=== PATIENT | female | born 1980 | race Caucasian/White ===

== ENCOUNTER → 2016-08-26 | Outpatient (CLI) | payer OTHER ==
[~2016-08-26] MED LIST: BLAC40CA PO; CHOL100010 PO; COEN1CAP28 PO; ESTR1TAB2 PO; LAMO100T16 PO; LEVO75TA PO; LORA-741 PO; MAGN1TAB21 PO; MULT-506 PO; OXCA600T2 PO; RIZA10TA18 PO
== END | disposition home or self-care (01) ==
LOC: C.PAPS 11:38
PROVIDERS: ATTEND Obstetrics & Gynecology
DX: Z01.419 Encounter for gynecological examination (general) (routine) without abnormal findings (principal)

== ENCOUNTER → 2016-10-25 | Outpatient (CLI) | payer OTHER ==
[2016-10-28 11:40] LABS: CHLAMYDIA TRACH RNA*** NOT DETECTED (NOT DETECTED); GC (NEIS GONORRHOEAE)RNA** NOT DETECTED (NOT DETECTED)
== END | disposition home or self-care (01) ==
LOC: C.LABSPEC 16:17
PROVIDERS: ATTEND Physician Assistant
DX: Z11.3 Encounter for screening for infections with a predominantly sexual mode of transmission (principal)

== ENCOUNTER → 2016-10-25 | Outpatient (CLI) | payer OTHER | END | disposition home or self-care (01) | LOC: C.LAB1850 12:51 | PROVIDERS: ATTEND Physician Assistant | DX: Z11.3 Encounter for screening for infections with a predominantly sexual mode of transmission (principal) ==

== ENCOUNTER → 2017-04-07 | Outpatient (CLI) | payer OTHER ==
--- NOTE | 2017-04-07 15:49 | MAMMOGRAPHY REPORT ---
BILATERAL DIGITAL DIAGNOSTIC MAMMOGRAM TOMOSYNTHESIS WITH CAD AND TARGETED RIGHT ULTRASOUND: 04/07/2017 CLINICAL HISTORY: The patient notes some swelling involving her right upper breast and right axillary region, with associated pain for approximately 3 weeks. She was placed on antibiotics yesterday. TECHNIQUE: Breast tomosynthesis in addition to standard 2D mammography was performed. Current study was also evaluated with a Computer Aided Detection (CAD) system. Bilateral CC and MLO 2-D and tomosy nthesis images were obtained. COMPARISON: No prior exams were available for comparison. BREAST COMPOSITION: There are scattered areas of fibroglandular density in both breasts. FINDINGS: A triangle marker garcia the site of swelling involving the right 12:00 breast far superiorl y. There are no suspicious masses or other suspicious mammographic abnormalities in this region. Th e remainder of both breasts are negative, without suspicious masses, calcifications, or areas of arch itectural distortion noted. Targeted ultrasound was performed of the area of swelling and pain pointed out by the patient, involv ing the right 11 to 1:00 breast far superiorly, approximately 9 cm from the nipple, as well as the ri ght axilla. Sonographically normal tissue is seen in this region, without evidence of a mass or othe r suspicious sonographic abnormality. Morphologically normal right axillary lymph nodes are seen, wi thout evidence of axillary adenopathy. IMPRESSION: ACR BI-RADS CATEGORY 2: BENIGN, TARGETED ULTRASOUND ACR BI-RADS CATEGORY 2: BENIGN No suspicious mammographic or sonographic abnormality to explain right superior breast/axillary swell ing and pain. There is no mammographic or targeted sonographic evidence of malignancy. Recommend cl inical follow-up for right breast symptoms, and recommend routine bilateral screening mammograms star ting at the age of 38 unless otherwise clinically indicated. The patient has been verbally notified of the results. Approximately 10% of breast cancers are not detected with mammography. A negative mammographic report should not delay biopsy if a clinically suggestive mass is present. Cathleen Tavera M.D. ah/:04/07/2017 13:49:08 Drapery Cutter: Lisa ORTIZ)(Jones), [facility] letter sent: Normal 1/2 BI-RADS Code: ACR BI-RADS Category 2: Benign Ultrasound BI-RADS: ACR BI-RADS Category 2: Benign
== END | disposition home or self-care (01) ==
LOC: C.MAMM 12:47
PROVIDERS: ATTEND Obstetrics & Gynecology
DX: N64.4 Mastodynia (principal)

== ENCOUNTER → 2017-06-21 | Outpatient (CLI) | payer OTHER ==
[2017-06-21 14:58] LABS: BASO % 1.4 %; BASO ABS # 0.09 K/uL (0-0.2); COMPLETE YES; EOS % 2.4 %; HEMATOCRIT 39.8 % (37-47); IG% 0.2 %; LYMPH % 39.4 %; LYMPH ABS # 2.48 K/uL (1.2-3.4); MEAN CORPUSCULAR HEMOGLOBIN 29.9 pg (25-34); MEAN CORPUSCULAR HGB CONC 33.2 g/dl (32-36); MEAN PLATELET VOLUME 9.4 fL (7.4-10.4); MONO % 8.3 %; NEUT % 48.3 %; PLATELET COUNT 258 K/uL (130-400); RED BLOOD COUNT 4.42 M/uL (4.2-5.4)
== END | disposition home or self-care (01) ==
LOC: C.LAB 12:58
PROVIDERS: ATTEND Physician Assistant Medical
DX: E03.9 Hypothyroidism, unspecified (principal); R10.9 Unspecified abdominal pain

== ENCOUNTER → 2017-09-29 | Outpatient (CLI) | payer OTHER | END | disposition home or self-care (01) | LOC: C.PAPS 13:36 | PROVIDERS: ATTEND Physician Assistant | DX: Z01.419 Encounter for gynecological examination (general) (routine) without abnormal findings (principal) ==

== ENCOUNTER 2017-10-06 01:36 | Emergency (ER) | payer OTHER ==
[~2017-10-06] VITALS: Ht 162.6 cm; Wt 82.8 kg
[2017-10-06 01:39] VITALS: TEMP 36.8; Ht 162.6 cm; Wt 82.8 kg
[2017-10-06] MEDS ORDERED: SODIUM CHLORIDE 0.9% 1000ML 2,000 ML IV STA (01:56)
[2017-10-06] MEDS ORDERED: KETOROLAC TROMETHAMINE 30 MG/ML VIAL IV STA (01:56)
--- NOTE | 2017-10-06 02:13 | EMERGENCY ROOM VISIT NOTE ---
History Report prepared by Toby: Zeyad Pollard Under the Supervision of: Dr. Julio Jones M.D. First contact with patient: 01:50 Chief Complaint: PAIN (GENERALIZED) Stated Complaint: PAIN ALL OVER History of Present Illness The patient is a 37 year old female who presents to the Emergency Room with complaints of generalized pain that began 22 hours ago. She states that she has a pins and needles sensation all over and numbness in her lower extremities. She states that she has chills, headache, and chest pain (due to her generalized pain). She notes that the cold weather worsens her pain. The patient reports she does not take medication for her fibromyalgia due to interactions with her bipolar medications (Trileptal, Lamictal). She states that she took Ibuprofen 4 hours ago with minimal relief. She states that she had a similar episode of pain when she was diagnosed with fibromyalgia in April,. She denies fevers, SOB, bowel issues, neck pain, sore throat, rash, swelling, urinary symptoms, bowel issues, falls, injuries, and abdominal pain. The patient reports that she drove herself to the ED. Source of History: patient Onset: 22 hours ago Position: head, other (lower extremities) Quality: ache, tingling, numbness Timing: constant Modifying Factors (Worsening): other (cold weather) Modifying Factors (Relieving): ibuprofen (minimal improvement) Associated Symptoms: + chills, + headache, + chest pain (due to generalized pain), + numbness, No fevers, No sorethroat, No neck pain, No SOB, No abdominal pain, No urinary symptoms, No rash Note: The patient bowel issues, denies falls, recent injuries, and swelling. Review of Systems See HPI for pertinent positives & negatives. A total of 10 systems reviewed and were otherwise negative. Past Medical & Surgical Medical Problems: (1) Bipolar disorder (2) Cholecystectomy (3) Fibromyalgia (4) Hypoglycemia (5) Hypothyroidism (6) Kidney stone (7) Partial hysterectomy Family History FH: cancer FH: gallbladder disease FH: seizures Hypertension Kidney disease or stones Social History Smoking Status: Never Smoker Alcohol Use: none Marital Status: in relationship Housing Status: lives alone Occupation Status: employed Current/Historical Medications Scheduled Estradiol (Estrace), 1 MG PO DAILY Lamotrigine (Lamictal), 200 MG PO BID Levothyroxine Sodium (Synthroid), 75 MCG PO DAILY Oxcarbazepine (Trileptal), 600 MG PO QPM Allergies Coded Allergies: Amitriptyline (Verified Allergy, Severe, "THROAT CLOSES", 10/06/17) Sumatriptan (Verified Allergy, Severe, PARALYSIS, 05/01/12) Latex1 -Allergic Contact Dermititis (Verified Allergy, Mild, `, 12/12/14) Acetaminophen (Verified Adverse Reaction, Severe, MAKES HER FEEL "SPACEY" , 12/15/14) Diazepam (Verified Adverse Reaction, Severe, CHEST HEAVINESS, SOB, 12/15/14 ) Morphine (Verified Adverse Reaction, Severe, CHEST HEAVINESS, SOB, 12/15/14 ) Codeine (Verified Adverse Reaction, Intermediate, blurry vision, unstable gait, 12/12/14) Hydrocodone (Verified Adverse Reaction, Mild, Hyperactivity, 04/24/12) Oxycodone (Verified Adverse Reaction, Mild, Panic attacks, chest tightness , 04/24/12) Physical Exam Vital Signs Date Time Temp Pulse Resp B/P (MAP) Pulse Ox O2 Delivery O2 Flow Rate FiO2 10/06/17 03:54 77 20 118/73 99 Room Air 10/06/17 01:39 36.8 74 20 136/81 99 Room Air Physical Exam GENERAL: Patient is anxious appearing and in mild distress. EYES: No scleral icterus, unremarkable pupils. ENT: Mucous membranes moist, no nasal congestion. NECK: No masses appreciated, no meningismus, trachea is midline. RESPIRATORY: No dyspnea. Clear to auscultation and equal bilaterally. No wheeze , no rhonchi. CARDIOVASCULAR: Regular rate and rhythm. No murmurs, rubs, gallops appreciated. GASTROINTESTINAL: Abdomen soft, nontender, no peritonitis. Bowel sounds positive. No masses appreciated. BACK: Significant scoliosis of upper and thoracic back. No midline tenderness, no CVA tenderness EXTREMITIES: Normal motion all extremities, no cyanosis, no edema. NEUROLOGIC: Alert and oriented, no acute motor or sensory deficits, no focal weakness, cranial nerves grossly intact. SKIN: No rash, no jaundice, no diaphoresis. Medical Decision & Procedures Laboratory Results 10/06/17 02:22 Red Blood Count 4.59, Mean Corpuscular Volume 86.5, Mean Corpuscular Hemoglobin 29.6, Mean Corpuscular Hemoglobin Concent 34.3, Mean Platelet Volume 9.1, Neutrophils (%) (Auto) 32.5, Lymphocytes (%) (Auto) 54.0, Monocytes (%) (Auto) 8.6, Eosinophils (%) (Auto) 3.2, Basophils (%) (Auto) 1.7, Neutrophils # (Auto) 1.55, Lymphocytes # (Auto) 2.57, Monocytes # (Auto) 0.41, Eosinophils # (Auto) 0.15, Basophils # (Auto) 0.08 10/06/17 02:22 Test 10/06/17 02:22 White Blood Count 4.76 K/uL (4.8-10.8) Red Blood Count 4.59 M/uL (4.2-5.4) Hemoglobin 13.6 g/dL (12.0-16.0) Hematocrit 39.7 % (37-47) Mean Corpuscular Volume 86.5 fL (80-100) Mean Corpuscular Hemoglobin 29.6 pg (25-34) Mean Corpuscular Hemoglobin Concent 34.3 g/dl (32-36) Platelet Count 208 K/uL (130-400) Mean Platelet Volume 9.1 fL (7.4-10.4) Neutrophils (%) (Auto) 32.5 % Lymphocytes (%) (Auto) 54.0 % Monocytes (%) (Auto) 8.6 % Eosinophils (%) (Auto) 3.2 % Basophils (%) (Auto) 1.7 % Neutrophils # (Auto) 1.55 K/uL (1.4-6.5) Lymphocytes # (Auto) 2.57 K/uL (1.2-3.4) Monocytes # (Auto) 0.41 K/uL (0.11-0.59) Eosinophils # (Auto) 0.15 K/uL (0-0.5) Basophils # (Auto) 0.08 K/uL (0-0.2) RDW Standard Deviation 38.7 fL (36.4-46.3) RDW Coefficient of Variation 12.2 % (11.5-14.5) Immature Granulocyte % (Auto) 0.0 % Immature Granulocyte # (Auto) 0.00 K/uL (0.00-0.02) Urine Color YELLOW Urine Appearance CLEAR (CLEAR) Urine pH 6.5 (4.5-7.5) Urine Specific [place] 1.017 (1.000-1.030) Urine Protein NEG (NEG) Urine Glucose (UA) NEG (NEG) Urine Ketones TRACE (NEG) Urine Occult Blood 2+ (NEG) Urine Nitrite NEG (NEG) Urine Bilirubin NEG (NEG) Urine Urobilinogen NEG (NEG) Urine Leukocyte Esterase NEG (NEG) Urine WBC (Auto) 1-5 /hpf (0-5) Urine RBC (Auto) >30 /hpf (0-4) Urine Hyaline Casts (Auto) 1-5 /lpf (0-5) Urine Epithelial Cells (Auto) 20-30 /lpf (0-5) Urine Bacteria (Auto) NEG (NEG) Anion Gap 5.0 mmol/L (3-11) Est Creatinine Clear Calc Drug Dose 128.9 ml/min Estimated GFR () 132.4 Estimated GFR (Non- 114.2 BUN/Creatinine Ratio 22.0 (10-20) Calcium Level 8.5 mg/dl (8.5-10.1) Total Creatine Kinase 153 U/L (26-192) Laboratory results as reviewed by me. Medications Administered Medications (Trade) Dose Ordered Sig/Dorothy Route Start Time Stop Time Status Last Admin Dose Admin Sodium Chloride 2,000 ml @ 999 mls/hr Q2H1M STAT IV 10/06/17 01:56 10/06/17 03:56 DC 10/06/17 02:16 999 MLS/HR Ketorolac Tromethamine (Toradol Inj) 30 mg NOW STAT IV 10/06/17 01:56 10/06/17 01:57 DC 10/06/17 02:16 30 MG Hydroxyzine HCl (Vistaril Tab) 50 mg NOW STAT PO 10/06/17 03:12 10/06/17 03:13 DC 10/06/17 03:53 50 MG ED Course 0150: The patient was evaluated in room B3B. A complete history and physical exam was performed. 0245: I checked on the patient and she states that she is still having pain and anxiety due to her pain. She states that she had taken Ativan previously without improvement. She states that she has a psychiatry appointment later this afternoon and that she is more anxious. She is allergic to narcotics and Tylenol. She does not want Ativan because it does not work. She states that if she was sedated, she would not be able to make her appointment. I offered her a psychiatric evaluation which she declines. We discussed her management plan after labs and to follow up with psychiatry. 0305: I checked the PDMP and the patient has many prescriptions for Ativan, 45 tablets of 1 mg, stopping in August 25, 2017. 0308: I checked on the patient and she is feeling better. We had along chat about going home. She has a follow up with her psychiatrist this afternoon. She is going to try Vistaril and she will follow up with her primary psychiatrist. I discussed that the Vistaril could cause sedation. She denies homicidal or suicidal ideation. She states that she does not want to see mental health at [facility]. 0310: Reevaluated the patient. Discussed results and discharge instructions: She verbalized understanding and agreement. The patient is ready for discharge. Medical Decision 37 yr old very anxious female complaining of total body pain which she related to her fibromyalgia flaring up. After multiple very long discussions with her at bed side she admits increased anxiety (about almost everything) and insomnia issues. She is adamant about no being suicidal/homicidal and states she has follow up with psych later this afternoon. She has no clear medical cause of these symptoms. Her exam is normal as well. She has no findings to suggest infectious, ischemic, nor neuro cause. She looks well and is stable. She does look much better after discussions. She requests something more for the pain but states she is allergic to narcotics and Tylenol, thus NSAIDs is about it. She states she still has ativan at home. I will send with a few Vistaril to see if that helps with sleep. Discussed no driving on sedatives. Reviewed symptoms requiring return. She is comfortable with this plan after I answered many of her questions. [place] Drug Monitoring Program Search Results: patient reviewed within database Drug Monitoring Findings: I checked the PDMP and the patient has many prescriptions for Ativan, 45 tablets of 1 mg, stopping in August 25, 2017. Medication Reconcilliation Current Medication List: was personally reviewed by me Blood Pressure Screening Patient's blood pressure: Normal blood pressure Blood pressure disposition: Did not require urgent referral Impression Primary Impression: Insomnia Additional Impressions: Anxiety Body aches Scribe Attestation The scribe's documentation has been prepared under my direction and personally reviewed by me in its entirety. I confirm that the note above accurately reflects all work, treatment, procedures, and medical decision making performed by me. Departure Information Dispostion Home / Self-Care Referrals Glenis Hwang P.A. (PCP) Patient Instructions My [facility] Additional Instructions We are always here to help. If you have worsening symptoms or other concerns return for further evaluation. If you have thoughts of harm to yourself or others call 911. Follow up with your psychiatrist as planned this afternoon. You have been examined and treated today on an emergency basis only. This is not a substitute for, or an effort to provide, complete comprehensive medical care. It is impossible to recognize and treat all injuries or illnesses in a single emergency department visit. It is therefore important that you follow up closely with your Primary Physician. Call as soon as possible for an appointment so you can review all labs, imaging and other testing that you had. Return to Emergency Department, call 911 or seek immediate medical attention if you feel your symptoms are worsening. Problem Qualifiers
[2017-10-06 02:39] LABS: HEMATOCRIT 39.7 % (37-47); HEMOGLOBIN 13.6 g/dL (12.0-16.0); MEAN CELL VOLUME 86.5 fL (80-100); MEAN CORPUSCULAR HEMOGLOBIN 29.6 pg (25-34); MEAN CORPUSCULAR HGB CONC 34.3 g/dl (32-36); MEAN PLATELET VOLUME 9.1 fL (7.4-10.4); PLATELET COUNT 208 K/uL (130-400); RED CELL DISTRIBUTION WIDTH CV 12.2 % (11.5-14.5); RED CELL DISTRIBUTION WIDTH SD 38.7 fL (36.4-46.3); WHITE BLOOD COUNT 4.76 K/uL (4.8-10.8)
[2017-10-06 02:58] LABS: CALCIUM 8.5 mg/dl (8.5-10.1); CREATININE 0.61 mg/dl (0.60-1.20); POTASSIUM 3.8 mmol/L (3.5-5.1)
[2017-10-06 03:06] LABS: BASO % 1.7 %; BASO ABS # 0.08 K/uL (0-0.2); EOS % 3.2 %; EOS ABS # 0.15 K/uL (0-0.5); LYMPH ABS # 2.57 K/uL (1.2-3.4); MONO % 8.6 %; MONO ABS # 0.41 K/uL (0.11-0.59); NEUT % 32.5 %; NEUT ABS # 1.55 K/uL (1.4-6.5)
[2017-10-06] MEDS ORDERED: hydrOXYzine HCL 25 MG TAB PO STA (03:12)
[2017-10-06 03:54] VITALS: BP 118/73; PULSE 77; O2SAT 99
== END 2017-10-06 04:04 | disposition home or self-care (01) ==
LOC: C.EDB 01:37
DX: G47.00 Insomnia, unspecified (principal); F41.9 Anxiety disorder, unspecified; R52 Pain, unspecified; F31.9 Bipolar disorder, unspecified; E03.9 Hypothyroidism, unspecified; Z87.442 Personal history of urinary calculi; Z90.711 Acquired absence of uterus with remaining cervical stump; Z90.49 Acquired absence of other specified parts of digestive tract; Z82.0 Family history of epilepsy and other diseases of the nervous system; Z82.49 Family history of ischemic heart disease and other diseases of the circulatory system; Z79.899 Other long term (current) drug therapy

== ENCOUNTER 2019-10-07 16:41 | Inpatient (IN) ==
[2019-10-07] MEDS ORDERED: ONDANSETRON INJ 2 MG/ML 2 ML VIAL IV STA (16:53)
[2019-10-07] MEDS ORDERED: SODIUM CHLORIDE 0.9% 1000ML 1,000 ML IV SCH (17:00)
[2019-10-07 17:56] LABS: Basophils # (auto) 0.03 K/uL (0-0.2); Basophils % (auto) 0.6 %; Eosinophils # (auto) 0.02 K/uL (0-0.5); Eosinophils % (auto) 0.4 %; Hematocrit (blood only) 39.4 % (37-47); Hemoglobin 13.5 g/dL (12.0-16.0); Lymphocytes # (auto) 1.32 K/uL (1.2-3.4); Lymphocytes % (auto) 24.3 %; Mean Corpuscular Hemoglobin 29.8 pg (25-34); Mean Corpuscular Hgb Conc 34.3 g/dL (32-36); Mean Platelet Volume 9.4 fL (7.4-10.4); Monocytes # (auto) 0.63 K/uL (0.11-0.59); Monocytes % (auto) 11.6 %; Neutrophils # (auto) 3.44 K/uL (1.4-6.5); Neutrophils % (auto) 63.1 %; Platelet Count 273 K/uL (130-400); RDW Coefficient of Variation 12.3 % (11.5-14.5); RDW Standard Deviation 39.2 fL (36.4-46.3); Red Blood Count 4.53 M/uL (4.2-5.4); White Blood Count 5.44 K/uL (4.8-10.8)
[2019-10-07 18:13] LABS: Albumin Level 4.1 gm/dl (3.4-5.0); BUN Creatinine Ratio 10.1 (10-20); Calcium 9.1 mg/dl (8.5-10.1); Creatinine Clr Calc Pharmacy 134.1 ml/min; Est GFR (African American) 129.1; Est GFR (Non-African American) 111.4; Potassium 3.7 mmol/L (3.5-5.1)
[2019-10-07 18:16] LABS: Albumin Globulin Ratio 1.3 (0.9-2); Bilirubin,Total 0.4 mg/dl (0.2-1); Globulin 3.3 gm/dl (2.5-4.0); Total Protein 7.4 gm/dl (6.4-8.2)
[2019-10-07 19:12] LABS: Acetaminophen < 2 ug/ml (10-30); Salicylate < 1.7 mg/dl (2.8-20)
--- NOTE | 2019-10-07 19:33 | Emergency Department Note ---
Entered by Rehana Atkinson acting as a scribe for History of Present Illness General Chief complaint: Altered Mental Status Stated complaint: SEMI RESP., POSSIBLE OVERDOSE OR MHID Source: patient Mode of arrival: EMS History of Present Illness Onset (ago): hour(s) less than 1 Location: abdomen Pain Consistency: + now resolved Relieved By: + none Associated symptoms: + nausea/vomiting and + other (diarrhea) Treatments prior to arrival: none The patient is a 39 year old female who presents to the Emergency Room with complaints of altered mental status. The patient was sent in from work, where they state that she has not been acting normally for the past week. The patient states that everyone at work thinks she is crazy. She works at the [employer] and was telling people about the "love of her life." The patient states that she was vomiting and had diarrhea at work. The patient was talking about God and now she states she is cold and no one cares. She also mentions a close friend who just . The patient denies drinking alcohol, and states that she uses medical marijuana. Home Medications Home Medications Medication Instructions Recorded Confirmed Type coenzyme Q10 [Co Q-10] 50 mg PO DAILY 06/08/18 10/07/19 History estradiol 1 mg PO DAILY 06/08/18 10/07/19 History magnesium 500 mg PO DAILY 06/08/18 10/07/19 History multivitamin 1 tab PO DAILY 06/08/18 10/07/19 History soy isofla-blk cohosh-mag bark 155 mg PO DAILY 06/08/18 10/07/19 History [Estroven] lamotrigine 100 mg tablet 100 mg PO BID #30 tab 03/21/19 10/07/19 Rx Medical Marijuana See Rx Instructions .ROUTE 10/05/19 10/07/19 History .COMPLEX PRN clonazepam [Klonopin] 0.5 mg PO TID PRN 10/05/19 10/07/19 History levothyroxine 100 mcg PO DAILY 10/05/19 10/07/19 History venlafaxine [Effexor XR] 75 mg PO QAM 10/05/19 10/07/19 History Allergies Allergy/AdvReac Type Severity Reaction Status Date / Time amitriptyline Allergy Severe "THROAT Verified 10/05/19 03:12 CLOSES" sumatriptan Allergy Severe PARALYSIS Verified 10/05/19 03:12 latex Allergy Intermediate SKIN Verified 10/05/19 03:12 REDDENS, SWELLING TO AREA acetaminophen AdvReac Severe MAKES HER Verified 10/05/19 03:12 FEEL "SPACEY" diazepam AdvReac Severe CHEST Verified 10/05/19 03:12 HEAVINESS, SOB morphine AdvReac Severe CHEST Verified 10/05/19 03:12 HEAVINESS, SOB codeine AdvReac Intermediate blurry Verified 10/05/19 03:12 vision, unstable gait hydrocodone AdvReac Mild Hyperactivi Verified 10/05/19 03:12 ty oxycodone AdvReac Mild Panic Verified 10/05/19 03:12 attacks, chest tightness Past Med/Surg History Medical History Bipolar disorder (Chronic) Fibromyalgia (Chronic) Hypothyroidism (Chronic) Surgical History H/O total hysterectomy Social History Preferred Language: Malagasy Feels Safe at Home: Yes Smoking Status: Never smoker Review of Systems See HPI for pertinent positives & negatives. and A total of 10 systems reviewed and were otherwise negative Physical Exam Vital Signs Vital Signs - 24 hr 10/07/19 16:46 10/07/19 19:00 10/07/19 19:32 Temperature 37.2 C Temperature Source Oral Pulse Rate 103 H Pulse Rate [Apical] 90 Respiratory Rate 22 18 Blood Pressure 175/106 H Blood Pressure [Right Arm] 155/88 H Blood Pressure Mean 129 Blood Pressure Mean [Right Arm] 110 Blood Pressure Position Lying Pulse Oximetry 100 97 100 Oxygen Delivery Method Room Air Room Air Sepsis Recent Fever Within 48 Hours No Sepsis New/Unexplained Change in Mental Status No Sepsis Action Taken by Nursing No Action Required Vital signs reviewed. General: Well-appearing female, in no significant distress. HEENT: No scleral icterus, PERRLA, neck supple. Atraumatic. Cardiovascular: Regular rate and rhythm, no extra sounds. Pulmonary: Clear to auscultation bilaterally, normal work of breathing. Abdomen: Soft, nontender, nondistended, positive bowel sounds. Musculoskeletal: Atraumatic, no peripheral edema. Neurologic: Patient awake alert and oriented x 3. Skin: Warm, dry, no rash Course Course 1650: Past medical records reviewed. The patient was evaluated in room A10. A complete history and physical exam was performed. 1814: The patients brother has filled out a petition. The patient will be evaluated for medical clearance. 1936: I rechecked on the patient and spoke to the psychiatric employment evaluator/case manager about admitting the patient. Administered Medications Discontinued Medications Clonazepam (Klonopin) 0.5 mg PO NOW STA Stop: 10/07/19 19:39 Last Admin: 10/07/19 19:41 Dose: 0.5 mg Documented by: [id number] Sodium Chloride (Nss 1000ml) 1,000 mls @ 999 mls/hr IV .Q1H1M KEY Stop: 10/07/19 18:00 Last Admin: 10/07/19 19:45 Dose: Not Given Documented by: [id number] Ondansetron HCl (Zofran) 4 mg IV NOW STA Stop: 10/07/19 16:54 Last Admin: 10/07/19 19:45 Dose: Not Given Documented by: [id number] Medical Decision Making Differential Diagnosis Differential diagnosis includes: metabolic, infection, hypoglycemia, electrolyte abnormalities, cardiac sources, intracerebral event, toxicologic, neurologic, as well as others were entertained. Medical Records Attestation: I reviewed the patient's medical records. Home Medications Current Medication List: was personally reviewed by me Laboratory Data Attestation: I reviewed the patient's lab results. Result diagrams: 10/07/19 17:41 10/07/19 17:41 Lab Results 10/07/19 10/07/19 10/07/19 Range/Units 17:41 17:41 17:41 WBC 5.44 (4.8-10.8) K/uL RBC 4.53 (4.2-5.4) M/uL Hgb 13.5 (12.0-16.0) g/dL Hct 39.4 (37-47) % MCV 87.0 (80-100) fL MCH 29.8 (25-34) pg MCHC 34.3 (32-36) g/dL RDW Std Deviation 39.2 (36.4-46.3) fL RDW Coeff of Mark 12.3 (11.5-14.5) % Plt Count 273 (130-400) K/uL MPV 9.4 (7.4-10.4) fL Immature Gran % (Auto) 0.0 % Neut % (Auto) 63.1 % Lymph % (Auto) 24.3 % [place] % (Auto) 11.6 % Eos % (Auto) 0.4 % Baso % (Auto) 0.6 % Immature Gran # (Auto) 0.00 (0.00-0.02) K/uL Neut # (Auto) 3.44 (1.4-6.5) K/uL Lymph # (Auto) 1.32 (1.2-3.4) K/uL [place] # (Auto) 0.63 H (0.11-0.59) K/uL Eos # (Auto) 0.02 (0-0.5) K/uL Baso # (Auto) 0.03 (0-0.2) K/uL Sodium 138 (136-145) mmol/L Potassium 3.7 (3.5-5.1) mmol/L Chloride 107 (98-107) mmol/L Carbon Dioxide 26 (21-32) mmol/L Anion Gap 6.0 (3-11) BUN 6 L (7-18) mg/dl Creatinine 0.63 (0.6-1.2) mg/dl Est Cr Clr Drug Dosing 134.1 ml/min Est GFR ( Amer) 129.1 Est GFR (Non-Af Amer) 111.4 BUN/Creatinine Ratio 10.1 (10-20) Glucose 107 H (70-99) mg/dl Calcium 9.1 (8.5-10.1) mg/dl Total Bilirubin 0.4 (0.2-1) mg/dl AST 22 (15-37) U/L ALT 33 (12-78) U/L Alkaline Phosphatase 80 (45-117) U/L Total Protein 7.4 (6.4-8.2) gm/dl Albumin 4.1 (3.4-5.0) gm/dl Globulin 3.3 (2.5-4.0) gm/dl Albumin/Globulin Ratio 1.3 (0.9-2) TSH (0.300-4.500) uIu/ml Urine Color Urine Appearance (Clear) Urine pH (4.5-7.5) Ur Specific [place] (1.000-1.030) Urine Protein (Negative) Urine Glucose (UA) (Negative) Urine Ketones (Negative) Urine Blood (Negative) Urine Nitrite (Negative) Urine Bilirubin (Negative) Urine Urobilinogen (Negative) Ur Leukocyte Esterase (Negative) Urine WBC (Auto) (0-5) /hpf Urine RBC (Auto) (0-4) /hpf U Hyaline Cast (Auto) (0-5) /lpf U Epithel Cells (Auto) (0-5) /lpf Urine Bacteria (Auto) (Negative) POC Ur Test (NEG) Salicylates (2.8-20) mg/dl Urine Opiates Screen (Neg) Ur Methadone, Qual (Neg) Acetaminophen (10-30) ug/ml Urine Barbiturates (Neg) Ur Phencyclidine (PCP) (Neg) U Amphetamin/Meth Scrn (Neg) MDMA (Ecstasy) Screen (Neg) U Benzodiazepines Scrn (Neg) Ur Cocaine Metabolite (Neg) U Marijuana (THC) Screen (Neg) Ethyl Alcohol mg/dL < 3.0 (0-3) mg/dl 10/07/19 10/07/19 10/07/19 Range/Units 17:41 17:41 19:20 WBC (4.8-10.8) K/uL RBC (4.2-5.4) M/uL Hgb (12.0-16.0) g/dL Hct (37-47) % MCV (80-100) fL MCH (25-34) pg MCHC (32-36) g/dL RDW Std Deviation (36.4-46.3) fL RDW Coeff of Mark (11.5-14.5) % Plt Count (130-400) K/uL MPV (7.4-10.4) fL Immature Gran % (Auto) % Neut % (Auto) % Lymph % (Auto) % [place] % (Auto) % Eos % (Auto) % Baso % (Auto) % Immature Gran # (Auto) (0.00-0.02) K/uL Neut # (Auto) (1.4-6.5) K/uL Lymph # (Auto) (1.2-3.4) K/uL [place] # (Auto) (0.11-0.59) K/uL Eos # (Auto) (0-0.5) K/uL Baso # (Auto) (0-0.2) K/uL Sodium (136-145) mmol/L Potassium (3.5-5.1) mmol/L Chloride (98-107) mmol/L Carbon Dioxide (21-32) mmol/L Anion Gap (3-11) BUN (7-18) mg/dl Creatinine (0.6-1.2) mg/dl Est Cr Clr Drug Dosing ml/min Est GFR ( Amer) Est GFR (Non-Af Amer) BUN/Creatinine Ratio (10-20) Glucose (70-99) mg/dl Calcium (8.5-10.1) mg/dl Total Bilirubin (0.2-1) mg/dl AST (15-37) U/L ALT (12-78) U/L Alkaline Phosphatase (45-117) U/L Total Protein (6.4-8.2) gm/dl Albumin (3.4-5.0) gm/dl Globulin (2.5-4.0) gm/dl Albumin/Globulin Ratio (0.9-2) TSH 1.540 (0.300-4.500) uIu/ml Urine Color Urine Appearance (Clear) Urine pH (4.5-7.5) Ur Specific [place] (1.000-1.030) Urine Protein (Negative) Urine Glucose (UA) (Negative) Urine Ketones (Negative) Urine Blood (Negative) Urine Nitrite (Negative) Urine Bilirubin (Negative) Urine Urobilinogen (Negative) Ur Leukocyte Esterase (Negative) Urine WBC (Auto) (0-5) /hpf Urine RBC (Auto) (0-4) /hpf U Hyaline Cast (Auto) (0-5) /lpf U Epithel Cells (Auto) (0-5) /lpf Urine Bacteria (Auto) (Negative) POC Ur Test (NEG) Salicylates < 1.7 L (2.8-20) mg/dl Urine Opiates Screen Neg (Neg) Ur Methadone, Qual Neg (Neg) Acetaminophen < 2 L (10-30) ug/ml Urine Barbiturates Neg (Neg) Ur Phencyclidine (PCP) Neg (Neg) U Amphetamin/Meth Scrn Neg (Neg) MDMA (Ecstasy) Screen Neg (Neg) U Benzodiazepines Scrn Neg (Neg) Ur Cocaine Metabolite Neg (Neg) U Marijuana (THC) Screen Pos H (Neg) Ethyl Alcohol mg/dL (0-3) mg/dl 10/07/19 10/07/19 Range/Units 19:20 19:20 WBC (4.8-10.8) K/uL RBC (4.2-5.4) M/uL Hgb (12.0-16.0) g/dL Hct (37-47) % MCV (80-100) fL MCH (25-34) pg MCHC (32-36) g/dL RDW Std Deviation (36.4-46.3) fL RDW Coeff of Mark (11.5-14.5) % Plt Count (130-400) K/uL MPV (7.4-10.4) fL Immature Gran % (Auto) % Neut % (Auto) % Lymph % (Auto) % [place] % (Auto) % Eos % (Auto) % Baso % (Auto) % Immature Gran # (Auto) (0.00-0.02) K/uL Neut # (Auto) (1.4-6.5) K/uL Lymph # (Auto) (1.2-3.4) K/uL [place] # (Auto) (0.11-0.59) K/uL Eos # (Auto) (0-0.5) K/uL Baso # (Auto) (0-0.2) K/uL Sodium (136-145) mmol/L Potassium (3.5-5.1) mmol/L Chloride (98-107) mmol/L Carbon Dioxide (21-32) mmol/L Anion Gap (3-11) BUN (7-18) mg/dl Creatinine (0.6-1.2) mg/dl Est Cr Clr Drug Dosing ml/min Est GFR ( Amer) Est GFR (Non-Af Amer) BUN/Creatinine Ratio (10-20) Glucose (70-99) mg/dl Calcium (8.5-10.1) mg/dl Total Bilirubin (0.2-1) mg/dl AST (15-37) U/L ALT (12-78) U/L Alkaline Phosphatase (45-117) U/L Total Protein (6.4-8.2) gm/dl Albumin (3.4-5.0) gm/dl Globulin (2.5-4.0) gm/dl Albumin/Globulin Ratio (0.9-2) TSH (0.300-4.500) uIu/ml Urine Color Yellow Urine Appearance Cloudy A (Clear) Urine pH 8.0 H (4.5-7.5) Ur Specific [place] 1.014 (1.000-1.030) Urine Protein Negative (Negative) Urine Glucose (UA) Negative (Negative) Urine Ketones 2+ H (Negative) Urine Blood 2+ H (Negative) Urine Nitrite Negative (Negative) Urine Bilirubin Negative (Negative) Urine Urobilinogen Negative (Negative) Ur Leukocyte Esterase Negative (Negative) Urine WBC (Auto) 1-5 (0-5) /hpf Urine RBC (Auto) >30 H (0-4) /hpf U Hyaline Cast (Auto) 0 (0-5) /lpf U Epithel Cells (Auto) >30 H (0-5) /lpf Urine Bacteria (Auto) Negative (Negative) POC Ur Test NEG (NEG) Salicylates (2.8-20) mg/dl Urine Opiates Screen (Neg) Ur Methadone, Qual (Neg) Acetaminophen (10-30) ug/ml Urine Barbiturates (Neg) Ur Phencyclidine (PCP) (Neg) U Amphetamin/Meth Scrn (Neg) MDMA (Ecstasy) Screen (Neg) U Benzodiazepines Scrn (Neg) Ur Cocaine Metabolite (Neg) U Marijuana (THC) Screen (Neg) Ethyl Alcohol mg/dL (0-3) mg/dl MDM Narrative This patient was evaluated and appeared to be in no significant distress. IV access was obtained and laboratory work was drawn. The patient was initially refusing medical clearance however upon her brother's arrival she was willing. Patient states "I need help." She states she has not been taking her medications recently. Patient also states she has not been showering. Patient seems to be growing agitated and I was called to the room. Upon my evaluation, the patient is sitting on the bathroom floor, holding an emesis basin. Patient had not vomiting, but stated she felt more comfortable in the room as "the xiao were closing in." Patient did receive 0.5 mg of p.o. Klonopin, her home dose. Patient seemed to be much more relaxed. Patient was evaluated by the psychiatric protective services case worker. Patient is asking for inpatient treatment to reestablish her medication regimen. Her brother states that she is unraveling, not showing up for work, tangential thoughts and difficulty maintaining her daily activities (showers, meds). Case was signed out to Dr. Jones at the change of shift awaiting final disposition. Impression & Plan Mood disorder, Nonadherence to medication Discharge Plan Visit Data Chief Complaint: Altered Mental Status Stated Complaint: SEMI RESP., POSSIBLE OVERDOSE OR MHID ED Provider: Baetriz Sharma Discharge Problem: Mood disorder, Nonadherence to medication Forms Stand Alone Forms: My [facility] [place] delicious Prescriptions Prescriptions: No Action lamotrigine [Lamictal] 100 mg tablet 100 mg PO BID Qty: 30 RF: 1 levothyroxine 100 mcg Tablet 100 mcg PO DAILY RF: 0 Medical Marijuana See Rx Instructions .ROUTE .COMPLEX PRN (Reason: Anxiety) RF: 0 venlafaxine [Effexor XR] 75 mg Capsule,Extended Release 24hr 75 mg PO QAM RF: 0 clonazepam [Klonopin] 0.5 mg tablet 0.5 mg PO TID PRN (Reason: Anxiety) RF: 0 multivitamin Tablet 1 tab PO DAILY RF: 0 coenzyme Q10 [Co Q-10] 50 mg Capsule 50 mg PO DAILY RF: 0 estradiol 1 mg Tablet 1 mg PO DAILY RF: 0 magnesium 250 mg Tablet 500 mg PO DAILY RF: 0 Estroven 155 mg Capsule 155 mg PO DAILY RF: 0 The scribe's documentation has been prepared under my direction and personally reviewed by me in its entirety. I confirm that the note above accurately reflects all work, treatment, procedures, and medical decision making performed by me.
[2019-10-07] MEDS ORDERED: clonazePAM 0.5 MG TAB PO STA (19:38)
[2019-10-07 19:41] LABS: Appearance Urine Cloudy (Clear); Bacteria Urine Automated Negative (Negative); Bilirubin Urine Negative (Negative); Blood Urine 2+ (Negative); Cast Urine Automated 0 /lpf (0-5); Color Urine Yellow; Epithelial Cell Urine Auto >30 /lpf (0-5); Glucose Urine UA Negative (Negative); Ketones Urine 2+ (Negative); Leukocyte Esterase Urine Negative (Negative); Nitrite Urine Negative (Negative); Protein Urine Negative (Negative); RBC Urine Automated >30 /hpf (0-4); Specific Gravity Urine 1.014 (1.000-1.030); Urobilinogen Urine Negative (Negative)
[2019-10-07 19:56] LABS: Amphetamines+Metham, Urine Neg (Neg); Barbiturates, Urine Neg (Neg); Benzodiazepine, Urine Neg (Neg); Cocaine, Urine Neg (Neg); MDMA (Ecstacy), Urine Neg (Neg); Methadone, Urine Neg (Neg); Opiate, Urine Neg (Neg); Phencyclidine, Urine Neg (Neg)
[2019-10-07] MEDS ORDERED: ACETAMINOPHEN 500 MG TAB PO STA (23:17)
[2019-10-07] MEDS ORDERED: ONDANSETRON 4 MG OD TAB PO STA (23:17)
[2019-10-07] MEDS ORDERED: BISMUTH SUBSALICYLATE PER ML OMNICELL CHARGE PO PRN (23:22)
[2019-10-07] MEDS ORDERED: SODIUM CHLORIDE 0.65% NA SOLN 45 ML (OCEAN) PRN (23:22)
[2019-10-07] MEDS ORDERED: MAGNESIUM HYDROXIDE SUSP 30 ML UDC PO PRN (23:22)
[2019-10-08] MEDS: LEVOTHYROXINE SODIUM 100 MCG TABLET PO SCH (07:44)
[2019-10-08] MEDS: estradioL 1 MG TAB PO SCH (07:45)
[2019-10-08] MEDS: MAGNESIUM OXIDE 400 MG TAB PO SCH (07:45)
[2019-10-08] MEDS: MULTIVITAMIN TAB PO SCH (07:45)
[2019-10-08] MEDS: lamoTRIgine 100 MG TAB PO SCH ×2 (07:45→20:45)
[2019-10-08] MEDS ORDERED: OLANZAPINE ZYDIS 5 MG ORALLY DIS. TAB PO PRN (08:57)
[2019-10-08] MEDS ORDERED: VENLAFAXINE HCL XR 75 MG CAPXR PO SCH (09:00)
[2019-10-08] MEDS ORDERED: [UNRECOGNIZED DRUG - OTHER] PO SCH (09:00)
[2019-10-08] MEDS ORDERED: NON-FORMULARY MEDICATION (Coenzyme Q10 [Co Q-10] 50 MG) PO SCH (09:00)
[2019-10-08] MEDS ORDERED: OLANZapine 10 MG/2.1 ML SDV IM PRN (09:07)
--- NOTE | 2019-10-08 10:03 | Psychiatric Progress Note ---
Date of Service October 08, 2019 Impression / Recommendations Impression 39 yo bipolar female with agitated wendi--see H&P, staff monitoring on seclusion/restraint protocol. Will complete 302 when delegate approves warrant. Protective Factors Assessment Employed: Yes Interval History Chief Complaint acute agitation Review of Systems Sleep Information Total Hours of Sleep: 1 Sleep Comments: pt on q-15 minute checks. pt given vistaril per rn. pt keren eared to sleep in the dayarea for about one hr. Subjective Subjective Patient was aggressive, striking 2 copatients and refusing PO medication for agitation. She would not respond to verbal deescalation efforts or contain self with staff support for safety of self and copatients. 302 petitioning statement by staff and county delegate notified. PRN Zyprexa IM 10 mg ordered. Patient accepted voluntarily but did require hold just after and ultimately locked seclusion. Physical Exam Mental Examination patient was restless, loud, agitated, expressing paranoia, after IM rushed door to seclusion room. Currently sleeping. Vital Signs (Past 24 Hours) Last Vital Signs Temp 36.2 C L 10/08/19 06:31 Pulse 117 H 10/08/19 06:32 Resp 20 10/08/19 06:31 BP 127/88 10/08/19 06:32 Pulse Ox 98 10/07/19 23:21 Results & Data ([facility]) Laboratory Results Laboratory Results - last 24 hr 10/07/19 10/07/19 10/07/19 17:41 17:41 17:41 WBC 5.44 RBC 4.53 Hgb 13.5 Hct 39.4 MCV 87.0 MCH 29.8 MCHC 34.3 RDW Std Deviation 39.2 RDW Coeff of Mark 12.3 Plt Count 273 MPV 9.4 Immature Gran % (Auto) 0.0 Neut % (Auto) 63.1 Lymph % (Auto) 24.3 [place] % (Auto) 11.6 Eos % (Auto) 0.4 Baso % (Auto) 0.6 Immature Gran # (Auto) 0.00 Neut # (Auto) 3.44 Lymph # (Auto) 1.32 [place] # (Auto) 0.63 H Eos # (Auto) 0.02 Baso # (Auto) 0.03 Sodium 138 Potassium 3.7 Chloride 107 Carbon Dioxide 26 Anion Gap 6.0 BUN 6 L Creatinine 0.63 Est Cr Clr Drug Dosing 134.1 Est GFR ( Amer) 129.1 Est GFR (Non-Af Amer) 111.4 BUN/Creatinine Ratio 10.1 Glucose 107 H Calcium 9.1 Total Bilirubin 0.4 AST 22 ALT 33 Alkaline Phosphatase 80 Total Protein 7.4 Albumin 4.1 Globulin 3.3 Albumin/Globulin Ratio 1.3 TSH Urine Color Urine Appearance Urine pH Ur Specific [place] Urine Protein Urine Glucose (UA) Urine Ketones Urine Blood Urine Nitrite Urine Bilirubin Urine Urobilinogen Ur Leukocyte Esterase Urine WBC (Auto) Urine RBC (Auto) U Hyaline Cast (Auto) U Epithel Cells (Auto) Urine Bacteria (Auto) POC Ur Test Salicylates Urine Opiates Screen Ur Methadone, Qual Acetaminophen Urine Barbiturates Ur Phencyclidine (PCP) U Amphetamin/Meth Scrn MDMA (Ecstasy) Screen U Benzodiazepines Scrn Ur Cocaine Metabolite U Marijuana (THC) Screen U Marijuana THC Carboxy Drug Screen Comment Ethyl Alcohol mg/dL < 3.0 10/07/19 10/07/19 10/07/19 17:41 17:41 19:20 WBC RBC Hgb Hct MCV MCH MCHC RDW Std Deviation RDW Coeff of Amrk Plt Count MPV Immature Gran % (Auto) Neut % (Auto) Lymph % (Auto) [place] % (Auto) Eos % (Auto) Baso % (Auto) Immature Gran # (Auto) Neut # (Auto) Lymph # (Auto) [place] # (Auto) Eos # (Auto) Baso # (Auto) Sodium Potassium Chloride Carbon Dioxide Anion Gap BUN Creatinine Est Cr Clr Drug Dosing Est GFR ( Amer) Est GFR (Non-Af Amer) BUN/Creatinine Ratio Glucose Calcium Total Bilirubin AST ALT Alkaline Phosphatase Total Protein Albumin Globulin Albumin/Globulin Ratio TSH 1.540 Urine Color Urine Appearance Urine pH Ur Specific [place] Urine Protein Urine Glucose (UA) Urine Ketones Urine Blood Urine Nitrite Urine Bilirubin Urine Urobilinogen Ur Leukocyte Esterase Urine WBC (Auto) Urine RBC (Auto) U Hyaline Cast (Auto) U Epithel Cells (Auto) Urine Bacteria (Auto) POC Ur Test Salicylates < 1.7 L Urine Opiates Screen Neg Ur Methadone, Qual Neg Acetaminophen < 2 L Urine Barbiturates Neg Ur Phencyclidine (PCP) Neg U Amphetamin/Meth Scrn Neg MDMA (Ecstasy) Screen Neg U Benzodiazepines Scrn Neg Ur Cocaine Metabolite Neg U Marijuana (THC) Screen Pos H U Marijuana THC Carboxy Drug Screen Comment Ethyl Alcohol mg/dL 10/07/19 10/07/19 10/07/19 19:20 19:20 19:20 WBC RBC Hgb Hct MCV MCH MCHC RDW Std Deviation RDW Coeff of Mark Plt Count MPV Immature Gran % (Auto) Neut % (Auto) Lymph % (Auto) [place] % (Auto) Eos % (Auto) Baso % (Auto) Immature Gran # (Auto) Neut # (Auto) Lymph # (Auto) [place] # (Auto) Eos # (Auto) Baso # (Auto) Sodium Potassium Chloride Carbon Dioxide Anion Gap BUN Creatinine Est Cr Clr Drug Dosing Est GFR ( Amer) Est GFR (Non-Af Amer) BUN/Creatinine Ratio Glucose Calcium Total Bilirubin AST ALT Alkaline Phosphatase Total Protein Albumin Globulin Albumin/Globulin Ratio TSH Urine Color Yellow Urine Appearance Cloudy A Urine pH 8.0 H Ur Specific [place] 1.014 Urine Protein Negative Urine Glucose (UA) Negative Urine Ketones 2+ H Urine Blood 2+ H Urine Nitrite Negative Urine Bilirubin Negative Urine Urobilinogen Negative Ur Leukocyte Esterase Negative Urine WBC (Auto) 1-5 Urine RBC (Auto) >30 H U Hyaline Cast (Auto) 0 U Epithel Cells (Auto) >30 H Urine Bacteria (Auto) Negative POC Ur Test NEG Salicylates Urine Opiates Screen Ur Methadone, Qual Acetaminophen Urine Barbiturates Ur Phencyclidine (PCP) U Amphetamin/Meth Scrn MDMA (Ecstasy) Screen U Benzodiazepines Scrn Ur Cocaine Metabolite U Marijuana (THC) Screen U Marijuana THC Carboxy Pending Drug Screen Comment Pending Ethyl Alcohol mg/dL Current Inpatient Medications Current Inpatient Medications: Current Inpatient Medications Al Hydrox/Mg Hydrox/Simethicone (Maalox) 30 ml PO Q4H PRN PRN Reason: GI Upset Stop: 11/06/19 23:21 Bismuth Subsalicylate (Kaopectate) 15 ml PO PRN PRN PRN Reason: Loose Stool Stop: 11/06/19 23:21 Clonazepam (Klonopin) 1 mg PO BID KEY Stop: 11/07/19 20:59 Clonazepam (Klonopin) 1 mg PO Q8 PRN PRN Reason: Anxiety/Agitation Stop: 11/07/19 09:15 Estradiol (Estrace) 1 mg PO DAILY KEY Stop: 11/07/19 08:59 Last Admin: 10/08/19 07:45 Dose: 1 mg Documented by: Hydroxyzine HCl (Vistaril) 50 mg PO HSZ PRN PRN Reason: Insomnia Stop: 11/06/19 23:21 Last Admin: 10/08/19 02:26 Dose: 50 mg Documented by: Hydroxyzine HCl (Vistaril) 25 mg PO Q4H PRN PRN Reason: Anxiety Stop: 11/06/19 23:21 Lamotrigine (Lamictal) 100 mg PO BID KEY Stop: 11/07/19 08:59 Last Admin: 10/08/19 07:45 Dose: 100 mg Documented by: Levothyroxine Sodium (Synthroid) 100 mcg PO DAILYBB [facility] Stop: 11/07/19 06:29 Last Admin: 10/08/19 07:44 Dose: 100 mcg Documented by: Magnesium Hydroxide (Milk Of Magnesia) 30 ml PO DAILY PRN PRN Reason: Constipation Stop: 11/06/19 23:21 Magnesium Oxide (Mag-Ox) 800 mg PO DAILY KEY Stop: 11/07/19 08:59 Last Admin: 10/08/19 07:45 Dose: 800 mg Documented by: Multivitamins (Multivitamin Tab) 1 tab PO DAILY KEY Stop: 11/07/19 08:59 Last Admin: 10/08/19 07:45 Dose: 1 tab Documented by: Olanzapine (Zyprexa Zydis Od) 10 mg PO HS KEY Stop: 11/07/19 21:59 Olanzapine (Zyprexa) 10 mg IM Q4 PRN PRN Reason: Agitation Stop: 11/07/19 09:06 Last Admin: 10/08/19 09:31 Dose: 10 mg Documented by: Sodium Chloride ([place] Nasal) 1 - 2 sprays NA PRN PRN PRN Reason: Nasal Dryness/Congestion Stop: 11/06/19 23:21 Mental Health & Subst Abuse Tx Therapist Name of Therapist: Denies/None Lube Worker Name of Lube Worker: Denies/None Post Discharge Appointments Primary Care Physician Name Of Family Doctor: Trevin
[2019-10-08] MEDS: clonazePAM 1 MG TAB PO PRN (12:15)
[2019-10-08] MEDS: OLANZAPINE ZYDIS 5 MG ORALLY DIS. TAB PO PRN ×2 (13:12→15:33)
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
[2019-10-08] MEDS: clonazePAM 1 MG TAB PO SCH (20:45)
[2019-10-08] MEDS ORDERED: OLANZAPINE ZYDIS 10 MG ORALLY DIS. TAB PO SCH (22:00)
[2019-10-09] MEDS: OLANZAPINE ZYDIS 5 MG ORALLY DIS. TAB PO PRN ×2 (05:29→12:36)
[2019-10-09] MEDS: MULTIVITAMIN TAB PO SCH (08:08)
[2019-10-09] MEDS: lamoTRIgine 100 MG TAB PO SCH ×2 (08:08→20:28)
[2019-10-09] MEDS: MAGNESIUM OXIDE 400 MG TAB PO SCH (08:08)
[2019-10-09] MEDS: clonazePAM 1 MG TAB PO SCH ×2 (08:08→20:28)
[2019-10-09] MEDS: estradioL 1 MG TAB PO SCH (08:08)
[2019-10-09] MEDS: LEVOTHYROXINE SODIUM 100 MCG TABLET PO SCH (08:08)
[2019-10-09] MEDS: IBUPROFEN 600 MG TAB PO PRN ×2 (08:09→16:34)
[2019-10-09] MEDS ORDERED: BENZTROPINE MESYLATE 1 MG TAB PO PRN (12:03)
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
[2019-10-09] MEDS: OLANZAPINE ZYDIS 10 MG ORALLY DIS. TAB PO SCH (20:29)
[2019-10-10] MEDS: LEVOTHYROXINE SODIUM 100 MCG TABLET PO SCH (07:27)
[2019-10-10] MEDS: MULTIVITAMIN TAB PO SCH (07:28)
[2019-10-10] MEDS: clonazePAM 1 MG TAB PO SCH ×2 (07:28→23:10)
[2019-10-10] MEDS: MAGNESIUM OXIDE 400 MG TAB PO SCH (07:28)
[2019-10-10] MEDS: lamoTRIgine 100 MG TAB PO SCH ×2 (07:28→21:20)
[2019-10-10] MEDS: estradioL 1 MG TAB PO SCH (07:28)
[2019-10-10] MEDS: IBUPROFEN 600 MG TAB PO PRN (07:52)
[2019-10-10 09:25] LABS: Marijuana Quant, GCMS Urine 43 ng/mL (<5)
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
[2019-10-10] MEDS: OLANZAPINE ZYDIS 5 MG ORALLY DIS. TAB PO PRN (12:44)
[2019-10-10] MEDS: OLANZAPINE ZYDIS 10 MG ORALLY DIS. TAB PO SCH (21:21)
[2019-10-10] MEDS: clonazePAM 1 MG TAB PO PRN (21:26)
[2019-10-10] MEDS: ZOLPIDEM TARTRATE 10 MG TAB PO PRN (21:27)
[2019-10-11] MEDS: IBUPROFEN 600 MG TAB PO PRN (02:18)
[2019-10-11] MEDS: lamoTRIgine 100 MG TAB PO SCH ×2 (08:44→20:57)
[2019-10-11] MEDS: MAGNESIUM OXIDE 400 MG TAB PO SCH (08:44)
[2019-10-11] MEDS: MULTIVITAMIN TAB PO SCH (08:44)
[2019-10-11] MEDS: estradioL 1 MG TAB PO SCH (08:44)
[2019-10-11] MEDS: LEVOTHYROXINE SODIUM 100 MCG TABLET PO SCH (08:44)
[2019-10-11] MEDS: clonazePAM 1 MG TAB PO SCH ×2 (08:47→20:55)
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
[2019-10-11] MEDS: ALUMINUM/MAGNESIUM SUSP 30 ML UDC PO PRN (17:41)
[2019-10-11] MEDS: clonazePAM 1 MG TAB PO PRN (18:12)
[2019-10-11] MEDS: OLANZAPINE ZYDIS 10 MG ORALLY DIS. TAB PO SCH (20:56)
[2019-10-11] MEDS: ZOLPIDEM TARTRATE 10 MG TAB PO PRN (20:58)
[2019-10-12] MEDS: MAGNESIUM OXIDE 400 MG TAB PO SCH (07:27)
[2019-10-12] MEDS: LEVOTHYROXINE SODIUM 100 MCG TABLET PO SCH (07:28)
[2019-10-12] MEDS: MULTIVITAMIN TAB PO SCH (07:28)
[2019-10-12] MEDS: lamoTRIgine 100 MG TAB PO SCH ×2 (07:28→22:01)
[2019-10-12] MEDS: estradioL 1 MG TAB PO SCH (07:28)
[2019-10-12] MEDS: clonazePAM 1 MG TAB PO SCH ×2 (07:29→21:58)
[2019-10-12] MEDS: OLANZAPINE ZYDIS 5 MG ORALLY DIS. TAB PO PRN ×2 (10:38→22:03)
[2019-10-12] MEDS: LITHIUM CARBONATE 300 MG TAB PO SCH ×2 (12:11→21:59)
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
[2019-10-12] MEDS: TEMAZEPAM 15 MG CAPSULE PO SCH (22:02)
[2019-10-12] MEDS: OLANZAPINE ZYDIS 10 MG ORALLY DIS. TAB PO SCH (22:05)
[2019-10-13] MEDS: TEMAZEPAM 15 MG CAPSULE PO PRN ×2 (00:03→21:29)
[2019-10-13] MEDS: ALUMINUM/MAGNESIUM SUSP 30 ML UDC PO PRN ×2 (00:23→08:50)
[2019-10-13] MEDS: lamoTRIgine 100 MG TAB PO SCH ×2 (08:16→20:15)
[2019-10-13] MEDS: LEVOTHYROXINE SODIUM 100 MCG TABLET PO SCH (08:16)
[2019-10-13] MEDS: MULTIVITAMIN TAB PO SCH (08:16)
[2019-10-13] MEDS: estradioL 1 MG TAB PO SCH (08:16)
[2019-10-13] MEDS: LITHIUM CARBONATE 300 MG TAB PO SCH ×2 (08:17→20:14)
[2019-10-13] MEDS: clonazePAM 1 MG TAB PO SCH ×2 (08:17→20:12)
[2019-10-13] MEDS: OLANZAPINE ZYDIS 5 MG ORALLY DIS. TAB PO PRN (08:19)
[2019-10-13] MEDS: MAGNESIUM OXIDE 400 MG TAB PO SCH (08:37)
[2019-10-13] MEDS ORDERED: ONDANSETRON 4 MG OD TAB PO STA (09:00)
--- NOTE | 2019-10-13 14:41 | Psychiatric Progress Note ---
Date of Service October 13, 2019 Impression / Recommendations Impression 39 yo bipolar female with agitated wendi--commitment status changed from 201 to 302, some response to Zyprexa. Requires MNPR for safety of self and others (summary)--ongoing wendi, slight improvement Zyprexa Zydis appears to be helping to contain wendi some, 20mg hs scheduled dose with 5mg prn dosing occurring 0-2 times a day, lamotrigine raised by 50mg 10/10 to 100mg am and 150mg hs, pt had previously been on 200mg bid in past and is on estrogen so likely therapeutic serum level impact might be approx half of dose if not on this medication so considering further titration over as appropriate, limited sleep, anxiety reactions osvaldo around male staff. past trail of lithium and pt is open to retrying, starting low dose given pt only able to tolerate or (willing to take?) low dose lithium in past pt slept 3 hours morning of 10/12 after couple hours of sleep overnight and being rather agitated and manicky disorganized this morning with some notable improvmeent in presentation once awakened, however still needing significant to stay on task and similar symptoms in more contained milder manner but in early afternoon not agitated. (1) Bipolar 1 disorder, mixed, severe: 10/07--The patient was admitted to the [facility] ([facility]) on q15 min checks (behavioral with suicide precautions) for safety. The patient will participate in group, recreational, and milieu therapies and will be offered additional individual and family sessions as clinically appropriate. Patient is unable to engage in meaningful discussion around treatment planning at this time. Will offer Zyprexa zydis 10 mg po qhs this hs and continue judicious prns. Effexor XR will be discontinued as manic. Continue Lamictal. Consider lithium. Need additional records re: previous mood stabilizer trials. Confirm amount MJ use as could be contributing factor. 10/08--titrate Zyprexa 20 mg hs, continue prns. Patient is back and forth on signing [facility]HER for [place] for prior med trials. Relates side effects to Depakote, Trileptal, "who knows what else", probably did have a lithium trial. italics=stay summary, 10/09--BID dosing for Zyprexa to decrease reliance on prns. Cannot engage in discussion around another atypical or lithium loading at this time. Review of [facility] rec lists (Seroquel, Depakote, Rexulti, [place], Latuda, Cymbalta, Trileptal, Lexapro, Abilify, Buspar, Lamictal, Neurontin and Lorazepam trials. Klonopin will need tapered when more stable. Will offer Ambien tonight if still unable to sleep. filed for 303 commitment hearing as patient lacks insight into her condition and needs to remain hospitalized for safety. If she would begin to refuse medications by mouth, it is my medical opinion that she would require antipsychotic medication over objection as without treatment for her wendi she would likely suffer or significant disability within the next 30 days. Also reviewed with sw that will need to confirm if she was indeed accepted to [facility] as I do not feel she is in any state to be signing legal documents re: student loans. 10/10 -The patient appears to be responding favorably to Zyprexa 20 mg at bedtime, and says that she feels that she is tolerating it well. She focuses heavily on reporting side effects from various other medications -Although the patient is able to acknowledge that she had been doing fairly well and had been stable until she changed psychiatrists for 5 months ago, she also indicated that during the same. She has experienced a number of psyc hosocial stressors and upheavals at work that may have contributed to her psychiatric decompensation. -Explained to the patient that Zyprexa 20 mg at bedtime is a good mood stabilizer, but I would also recommend that we increase her dose of lamotrigine from 100 mg twice a day to a dose of 150 mg twice a day, with an intermediary step of 100 mg in the morning and 150 mg at bedtime for 2 weeks before increasing further, as tolerated. The patient indicated understanding and agreement, but notes that, in the past, she feels that she has been somewhat overly sedated by lamotrigine, but agrees to allow us to monitor and titrate as indicated. -The patient was retained at her 302 commitment hearing this morning. The patient was fully cooperative with the hearing and expressed her willingness to adhere with recommended treatment during the hospitalization. The patient's brother was present and provided the patient with support by holding her hand during the hearing. 10/11 - stopped Ambien, -added temazepam 5mg hs plus 15mg hs prn repeat dose if not able to sleep -added lithium carbonate 150mg po bid -grounding processes being reviewed with pt, -male creative services writer seeing with female staff being present to help alleviate her anxiety that occurs 10/12 - limiting stimulation, encouraging sleep, frequent redirection and maintaining plan unchanged for now given further containment of symptoms appearing to occur Risk Factors Assessment Do You Have Access To A Gun?: No Protective Factors Assessment Employed: Yes Interval History Chief Complaint "[]". Review of Systems Sleep Information Total Hours of Sleep: 3.25 Sleep Comments: sleep hours are between the 10/08 and 06/06 shifts. she received two doses of restoril for sleep aid. she had fallen to sleep on the 10/08 shift prior to getting her hs meds and received them when she awoke in an hour and a half. she stayed awake even after receiving her second restoril and feel asleep from [id number]. she then slept again from [id number]. she loods tired, in motion in her room with eyes barely open. Meal Information Percent Meal Consumed - Breakfast: 0 Percent Meal Consumed - Lunch: 100 Percent Meal Consumed - Dinner: 60 Nutrition Comment: pt was sleeping Subjective Subjective Patient was seen & assessed and interval progress reviewed with nursing and social work. pt was quite agitated and pressured speech and disorganized behaviors this morning, limited sleep but increased from prior nights, given Zyprexa Zydis prn dose this morning and fell asleep after that for 3-4 hours after that. assessed by creative services writer with Yazmin in room as a female nurse to assist. Pt reported feeling better and calmer, she endorsed feeling like a million bucks with a less euphoric edge to her report then yesterday. tangentially lessened some as is her circumstantiality. pt was hungry and wanted to eat after assessment and took notable time for her to end up sitting down with a tray and eating took time to occur,due to distractibility and trouble staying the course, tolerating redirection but notable redirection needed. denied s/e to low dose lithium being added, Physical Exam Psychiatric Orientation: alert, oriented x 3 and cooperative Apperance: appropriately dressed, appropriately groomed and + disheveled Eye Contact: + fair eye contact Speech: + pressured speech (milder then prior days ) Affect: + anxious affect and + elated affect good mood, like a million bucks Thought Process: + circumstantial thought process (decreased notably ) and + tangential thought process (milder then prior days ) Thought Content: + cognitive distortions and reality based without delusions Suicidal Thoughts: denies suicidal thoughts Homicidal Thoughts: denies homicidal thoughts Hallucinations: no auditory hallucinations and no visual hallucinations Cognition: recent memory grossly intact, remote memory grossly intact and language grossly intact; + attention not intact Estimated Intelligence: consistent with education level and + above average estimated intelligence Insight: + impaired insight Judgement: + impaired judgement Vital Signs (Past 24 Hours) Last Vital Signs Temp 36.6 C 10/13/19 06:38 Pulse 137 H 10/13/19 06:39 Resp 20 10/13/19 06:38 BP 118/72 10/13/19 06:39 Pulse Ox 98 10/07/19 23:21 Results & Data ([facility]) Current Inpatient Medications Current Inpatient Medications: Current Inpatient Medications Al Hydrox/Mg Hydrox/Simethicone (Maalox) 30 ml PO Q4H PRN PRN Reason: GI Upset Stop: 11/06/19 23:21 Last Admin: 10/13/19 08:50 Dose: 30 ml Documented by: Benztropine Mesylate (Cogentin) 1 mg PO BID PRN PRN Reason: Muscle Spasm Stop: 11/08/19 12:02 Bismuth Subsalicylate (Kaopectate) 15 ml PO PRN PRN PRN Reason: Loose Stool Stop: 11/06/19 23:21 Clonazepam (Klonopin) 1 mg PO BID [facility] Stop: 11/07/19 20:59 Last Admin: 10/13/19 08:17 Dose: 1 mg Documented by: Clonazepam (Klonopin) 1 mg PO Q8 PRN PRN Reason: Anxiety/Agitation Stop: 11/07/19 09:15 Last Admin: 10/11/19 18:12 Dose: 1 mg Documented by: Estradiol (Estrace) 1 mg PO DAILY [facility] Stop: 11/07/19 08:59 Last Admin: 10/13/19 08:16 Dose: 1 mg Documented by: Hydroxyzine HCl (Vistaril) 50 mg PO HSZ PRN PRN Reason: Insomnia Stop: 11/06/19 23:21 Last Admin: 10/12/19 02:45 Dose: 50 mg Documented by: Hydroxyzine HCl (Vistaril) 25 mg PO Q4H PRN PRN Reason: Anxiety Stop: 11/06/19 23:21 Last Admin: 10/11/19 18:10 Dose: 25 mg Documented by: Ibuprofen (Motrin) 600 mg PO Q6H PRN PRN Reason: Pain Stop: 11/07/19 13:45 Last Admin: 10/11/19 02:18 Dose: 600 mg Documented by: Lamotrigine (Lamictal) 100 mg PO QAM [facility] Stop: 11/11/19 08:59 Last Admin: 10/13/19 08:16 Dose: 100 mg Documented by: Lamotrigine (Lamictal) 150 mg PO [facility] Stop: 11/10/19 21:59 Last Admin: 10/12/19 22:01 Dose: 150 mg Documented by: Levothyroxine Sodium (Synthroid) 100 mcg PO DAILYBB [facility] Stop: 11/07/19 06:29 Last Admin: 10/13/19 08:16 Dose: 100 mcg Documented by: [place] Carbonate ([place] Carbonate) 150 mg PO BID [facility] Stop: 11/11/19 11:59 Last Admin: 10/13/19 08:17 Dose: 150 mg Documented by: Magnesium Hydroxide (Milk Of Magnesia) 30 ml PO DAILY PRN PRN Reason: Constipation Stop: 11/06/19 23:21 Magnesium Oxide (Mag-Ox) 800 mg PO DAILY [facility] Stop: 11/07/19 08:59 Last Admin: 10/13/19 08:37 Dose: 800 mg Documented by: Multivitamins (Multivitamin Tab) 1 tab PO DAILY [facility] Stop: 11/07/19 08:59 Last Admin: 10/13/19 08:16 Dose: 1 tab Documented by: Olanzapine (Zyprexa) 10 mg IM Q4 PRN PRN Reason: Agitation Stop: 11/07/19 09:06 Last Admin: 10/08/19 09:31 Dose: 10 mg Documented by: Olanzapine (Zyprexa Zydis Od) 5 mg PO Q4 PRN PRN Reason: Anxiety/Agitation Stop: 11/07/19 12:59 Last Admin: 10/13/19 08:19 Dose: 5 mg Documented by: Olanzapine (Zyprexa Zydis Od) 20 mg PO [facility] Stop: 11/08/19 21:59 Last Admin: 10/12/19 22:05 Dose: 20 mg Documented by: Ondansetron HCl (Zofran Odt) 4 mg PO Q6H PRN PRN Reason: Nausea Stop: 11/12/19 09:00 Sodium Chloride ([place] Nasal) 1 - 2 sprays NA PRN PRN PRN Reason: Nasal Dryness/Congestion Stop: 11/06/19 23:21 Temazepam (Restoril) 15 mg PO HSZ KEY Stop: 11/11/19 21:59 Last Admin: 10/12/19 22:02 Dose: 15 mg Documented by: Temazepam (Restoril) 15 mg PO HSZ PRN PRN Reason: Insomnia Stop: 11/11/19 11:46 Last Admin: 10/13/19 00:03 Dose: 15 mg Documented by: Mental Health & Subst Abuse Tx Psychiatrist Name of Psychiatrist: [facility] Psychiatrist's Date of Appointment with Psychiatrist: 10/29/19 Time of Appointment with Psychiatrist: 11:50 a.m. Psychiatric Appointment Comment: [address] [facility] [facility] [address], [place] [id number] Therapist Name of Therapist: Denies/None Labview Programmer Name of [facility] Programmer: Denies/None Post Discharge Appointments Primary Care Physician Name Of Family Doctor: [facility] - Dr. Zhong Primary Care Provider Appointment Comment: [address] , [address], [place] [address] Contact Information Discharge Discharge Address: [address], [address], [place] [address]
[2019-10-13] MEDS: clonazePAM 1 MG TAB PO PRN (17:19)
[2019-10-13] MEDS: TEMAZEPAM 15 MG CAPSULE PO SCH (20:16)
[2019-10-13] MEDS: OLANZAPINE ZYDIS 10 MG ORALLY DIS. TAB PO SCH (20:17)
[2019-10-13] MEDS: IBUPROFEN 600 MG TAB PO PRN (21:29)
[2019-10-14] MEDS: ALUMINUM/MAGNESIUM SUSP 30 ML UDC PO PRN (03:27)
[2019-10-14] MEDS: IBUPROFEN 600 MG TAB PO PRN (03:31)
[2019-10-14] MEDS: LEVOTHYROXINE SODIUM 100 MCG TABLET PO SCH (07:57)
[2019-10-14] MEDS: estradioL 1 MG TAB PO SCH (08:39)
[2019-10-14] MEDS: LITHIUM CARBONATE 300 MG TAB PO SCH ×2 (08:39→21:54)
[2019-10-14] MEDS: lamoTRIgine 100 MG TAB PO SCH ×2 (08:39→21:55)
[2019-10-14] MEDS: MAGNESIUM OXIDE 400 MG TAB PO SCH (08:40)
[2019-10-14] MEDS: MULTIVITAMIN TAB PO SCH (08:40)
[2019-10-14] MEDS: clonazePAM 1 MG TAB PO SCH ×2 (08:41→21:54)
--- NOTE | 2019-10-14 10:53 | Psychiatric Progress Note ---
Date of Service October 14, 2019 Impression / Recommendations Impression 39-year-old female with reported history of bipolar disorder admitted for inpatient psychiatric treatment. Pt was initially voluntary for admission, but after striking two patients and demonstrating significant disorganization and paranoia - a 302 involuntary commitment was pursued. A 303 was granted on 10/11/2019. Pt is demonstrating some response to olanzapine; however, continues to be disorganized and is unable to get sufficient sleep on the unit. Lamotrigine is being titrated to more effective dosing (target of 200mg BID, past dose). Pt did have a trial of lithium in the past, and was reportedly agreeable with re-trail of the medication at 150mg BID. Pt continues to demonstrate poor, interrupted sleep. We will titrate temazepam to 15mg this evening to assist with this. She may require ongoing titration of mood stabilization agents. MNPR is maintained for poor boundaries, disorganization, and poor sleep. Inpatient psychiatric treatment remains the least restrictive and most appropriate setting for the patient at this time. (1) Bipolar 1 disorder, mixed, severe: 10/07--The patient was admitted to the [facility] ([facility] unit) on q15 min checks (behavioral with suicide precautions) for safety. The patient will participate in group, recreational, and milieu therapies and will be offered additional individual and family sessions as clinically appropriate. Patient is unable to engage in meaningful discussion around treatment planning at this time. Will offer Zyprexa zydis 10 mg po qhs this hs and continue judicious prns. Effexor XR will be discontinued as manic. Continue Lamictal. Consider lithium. Need additional records re: previous mood stabilizer trials. Confirm amount MJ use as could be contributing factor. 10/08--titrate Zyprexa 20 mg hs, continue prns. Patient is back and forth on signing CHRISTOPHER for [employer] for prior med trials. Relates side effects to Depakote, Trileptal, "who knows what else", probably did have a lithium trial. 10/09--BID dosing for Zyprexa to decrease reliance on prns. Cannot engage in discussion around another atypical or lithium loading at this time. Review of [employer] med rec lists (Seroquel, Depakote, Rexulti, [place], Latuda, Cymbalta, Trileptal, Lexapro, Abilify, Buspar, Lamictal, Neurontin and Lorazepam trials. Klonopin will need tapered when more stable. Will offer Ambien tonight if still unable to sleep. filed for 303 commitment hearing as patient lacks insight into her condition and needs to remain hospitalized for safety. If she would begin to refuse medications by mouth, it is my medical opinion that she would require antipsychotic medication over objection as without treatment for her wendi she would likely suffer or significant disability within the next 30 days. Also reviewed with sw that will need to confirm if she was indeed accepted to [facility] as I do not feel she is in any state to be signing legal documents re: student loans. 10/10 -The patient appears to be responding favorably to Zyprexa 20 mg at bedtime, and says that she feels that she is tolerating it well. She focuses heavily on reporting side effects from various other medications -Although the patient is able to acknowledge that she had been doing fairly well and had been stable until she changed psychiatrists for 5 months ago, she also indicated that during the same. She has experienced a number of psychosocial stressors and upheavals at work that may have contributed to her psychiatric decompensation. -Explained to the patient that Zyprexa 20 mg at bedtime is a good mood stabilizer, but I would also recommend that we increase her dose of lamotrigine from 100 mg twice a day to a dose of 150 mg twice a day, with an intermediary step of 100 mg in the morning and 150 mg at bedtime for 2 weeks before increasing further, as tolerated. The patient indicated understanding and agreement, but notes that, in the past, she feels that she has been somewhat overly sedated by lamotrigine, but agrees to allow us to monitor and titrate as indicated. -The patient was retained at her 302 commitment hearing this morning. The patient was fully cooperative with the hearing and expressed her willingness to adhere with recommended treatment during the hospitalization. The patient's brother was present and provided the patient with support by holding her hand during the hearing. 10/11 - stopped Ambien, -added temazepam 5mg hs plus 15mg hs prn repeat dose if not able to sleep -added lithium carbonate 150mg po bid -grounding processes being reviewed with pt, -male keno writer seeing with female staff being present to help alleviate her anxiety that occurs 10/12 - limiting stimulation, encouraging sleep, frequent redirection and maintaining plan unchanged for now given further containment of symptoms appearing to occur 10/13 - Continue attempts to limit stimulation in order to encourage sleep, will increase temazepam to 15mg due to poor sleep since admission with limited response to 7.5mg dose - Continue current medication regimen presently - consider need for ongoing adjustments as patient continues to demonstrate disorganized thought process - Ongoing redirection as required, limitation of group programming based on patient's ability to tolerate activity - Maintain MNPR at this time due to poor sleep, disorganization, and remaining inappropriate for a roommate Risk Factors Assessment Do You Have Access To A Gun?: No Protective Factors Assessment Employed: Yes Interval History Identifying Information THERESA RYAN is a 39-year-old F who currently lives in [place] with mother, has a history of wendi, and was admitted on 10/07/19 23:23 on a 201 voluntary commitment for disorganized behavior at work. Pt became acutely agitated after arrival on unit and commitment status was converted to a 302. 303 was granted on 10/10. Chief Complaint "I'm tired, ok though." Review of Systems Notes Constitutional: reports poor quality of sleep, fatigue Cardiovascular: denied Respiratory: denied Gastrointestinal: denied Neurological: denied Psychiatric: denies symptoms other than stated above Total of at least 10 systems reviewed, pertinent positives as above and in HPI. Sleep Information Total Hours of Sleep: 3 Sleep Comments: pt on q-15 minute checks Meal Information Percent Meal Consumed - Breakfast: 50 Percent Meal Consumed - Lunch: 100 Percent Meal Consumed - Dinner: 75 Nutrition Comment: pt was sleeping Subjective Subjective Patient was seen & assessed and interval progress reviewed with treatment team. Staff report the patient has continued to demonstrate manic behavior, with ongoing disorganized thought process and paranoia. Pt's sleep has been limited and inconsistent since admission. She did participate appropriately in community meeting last evening, rating her mood a 5/10. Otherwise, she has been excused from most group programming. Pt was seen today to assess progress since admission. Pt states she is feeling "tired" today, but otherwise states she is "fine." She admits to perceived improvement with medication adjustments made over the weekend. Pt continues to be disorganized and reports delusional statements such as having a fiance, "there's not a ring, but it's basically a for sure thing." She also stated she is writing down the titles of all the m agazines piled in her room "so I can look them up and read them when I leave." Pt did report to this ABAD and the charge nurse that she believes she fell in her room "I was already on the ground looking for a book, but then my vision started getting those black spots." She states she then "fell over", claiming she lost consciousness for "20 minutes, I was banging on the door to get help." Pt's room is in direct line of sight from the nurses station, observation checks continued as usual, and this reported event as patient reports it was not observed by staff. Pt is at this time denying any physical complaints aside from being "tired." She was encouraged to reach out with any updates. Pt did report willingness to sleep at this time, admitting she has not slept well the past several days. Ongoing attempts are being made to limit distractions in order to improve quality of sleep. Pt denied other needs or concerns today. Physical Exam Psychiatric Orientation: alert and oriented x 3 Apperance: appropriately dressed, appropriately groomed and appeared stated age Eye Contact: + fair eye contact Motor Behavior: steady gait and station (though slowed) Speech: normal rate/rhythm/volume of speech Affect: + blunted affect (appearing subdued/sedated) Mood: no depressed mood ("I'm fine") Thought Process: + perseveration (on her "fiance"); + thought process not linear or logical and + thought process not clear or coherent Thought Content: + preoccupation (with her "fiance") and + delusions Hallucinations: no auditory hallucinations and no visual hallucinations Cognition: attention grossly intact and language grossly intact Insight: + impaired insight Judgement: + impaired judgement Vital Signs (Past 24 Hours) Last Vital Signs Temp 36.6 C 10/13/19 06:38 Pulse 137 H 10/13/19 06:39 Resp 20 10/13/19 06:38 BP 118/72 10/13/19 06:39 Pulse Ox 98 10/07/19 23:21 Results & Data ([facility]) Current Inpatient Medications Current Inpatient Medications: Current Inpatient Medications Al Hydrox/Mg Hydrox/Simethicone (Maalox) 30 ml PO Q4H PRN PRN Reason: GI Upset Stop: 11/06/19 23:21 Last Admin: 10/14/19 03:27 Dose: 30 ml Documented by: Benztropine Mesylate (Cogentin) 1 mg PO BID PRN PRN Reason: Muscle Spasm Stop: 11/08/19 12:02 Bismuth Subsalicylate (Kaopectate) 15 ml PO PRN PRN PRN Reason: Loose Stool Stop: 11/06/19 23:21 Clonazepam (Klonopin) 1 mg PO BID [facility] Stop: 11/07/19 20:59 Last Admin: 10/14/19 08:41 Dose: 1 mg Documented by: Clonazepam (Klonopin) 1 mg PO Q8 PRN PRN Reason: Anxiety/Agitation Stop: 11/07/19 09:15 Last Admin: 10/13/19 17:19 Dose: 1 mg Documented by: Estradiol (Estrace) 1 mg PO DAILY [facility] Stop: 11/07/19 08:59 Last Admin: 10/14/19 08:39 Dose: 1 mg Documented by: Hydroxyzine HCl (Vistaril) 50 mg PO HSZ PRN PRN Reason: Insomnia Stop: 11/06/19 23:21 Last Admin: 10/12/19 02:45 Dose: 50 mg Documented by: Hydroxyzine HCl (Vistaril) 25 mg PO Q4H PRN PRN Reason: Anxiety Stop: 11/06/19 23:21 Last Admin: 10/13/19 17:20 Dose: 25 mg Documented by: Ibuprofen (Motrin) 600 mg PO Q6H PRN PRN Reason: Pain Stop: 11/07/19 13:45 Last Admin: 10/14/19 03:31 Dose: 600 mg Documented by: Lamotrigine (Lamictal) 100 mg PO QAM [facility] Stop: 11/11/19 08:59 Last Admin: 10/14/19 08:39 Dose: 100 mg Documented by: Lamotrigine (Lamictal) 150 mg PO HS [facility] Stop: 11/10/19 21:59 Last Admin: 10/13/19 20:15 Dose: 150 mg Documented by: Levothyroxine Sodium (Synthroid) 100 mcg PO DAILYBB [facility] Stop: 11/07/19 06:29 Last Admin: 10/14/19 07:57 Dose: 100 mcg Documented by: [place] Carbonate ([place] Carbonate) 150 mg PO BID [facility] Stop: 11/11/19 11:59 Last Admin: 10/14/19 08:39 Dose: 150 mg Documented by: Magnesium Hydroxide (Milk Of Magnesia) 30 ml PO DAILY PRN PRN Reason: Constipation Stop: 11/06/19 23:21 Magnesium Oxide (Mag-Ox) 800 mg PO DAILY [facility] Stop: 11/07/19 08:59 Last Admin: 10/14/19 08:40 Dose: 800 mg Documented by: Multivitamins (Multivitamin Tab) 1 tab PO DAILY [facility] Stop: 11/07/19 08:59 Last Admin: 10/14/19 08:40 Dose: 1 tab Documented by: Olanzapine (Zyprexa) 10 mg IM Q4 PRN PRN Reason: Agitation Stop: 11/07/19 09:06 Last Admin: 10/08/19 09:31 Dose: 10 mg Documented by: Olanzapine (Zyprexa Zydis Od) 5 mg PO Q4 PRN PRN Reason: Anxiety/Agitation Stop: 11/07/19 12:59 Last Admin: 10/13/19 08:19 Dose: 5 mg Documented by: Olanzapine (Zyprexa Zydis Od) 20 mg PO HS [facility] Stop: 11/08/19 21:59 Last Admin: 10/13/19 20:17 Dose: 20 mg Documented by: Ondansetron HCl (Zofran Odt) 4 mg PO Q6H PRN PRN Reason: Nausea Stop: 11/12/19 09:00 Sodium Chloride ([place] Nasal) 1 - 2 sprays NA PRN PRN PRN Reason: Nasal Dryness/Congestion Stop: 11/06/19 23:21 Temazepam (Restoril) 15 mg PO HSZ [facility] Stop: 11/11/19 21:59 Last Admin: 10/13/19 20:16 Dose: 15 mg Documented by: Temazepam (Restoril) 15 mg PO HSZ PRN PRN Reason: Insomnia Stop: 11/11/19 11:46 Last Admin: 10/13/19 21:29 Dose: 15 mg Documented by: Mental Health & Subst Abuse Tx Psychiatrist Name of Psychiatrist: [facility] Psych[facility]'s Date of Appointment with Psychiatrist: 10/29/19 Time of Appointment with Psychiatrist: 11:50 a.m. Psychiatric Appointment Comment: [address], [address], [place] [id number] Therapist Name of Therapist: Denies/None Machine Room Engineer Name of Machine Room Engineer: Denies/None Post Discharge Appointments Primary Care Physician Name Of Family Doctor: [facility] - Dr. Zhong Primary Care Provider Appointment Comment: [address] , [address], [place] [address] Contact Information Discharge Discharge Address: [address] [place] [address], [address], [place] [address]
[2019-10-14] MEDS: OLANZAPINE ZYDIS 5 MG ORALLY DIS. TAB PO PRN (12:02)
[2019-10-14] MEDS: OLANZAPINE ZYDIS 10 MG ORALLY DIS. TAB PO SCH (21:55)
[2019-10-14] MEDS: TEMAZEPAM 15 MG CAPSULE PO SCH (21:56)
[2019-10-15] MEDS: LEVOTHYROXINE SODIUM 100 MCG TABLET PO SCH (09:03)
[2019-10-15] MEDS: LITHIUM CARBONATE 300 MG TAB PO SCH ×2 (09:03→21:50)
[2019-10-15] MEDS: estradioL 1 MG TAB PO SCH (09:03)
[2019-10-15] MEDS: lamoTRIgine 100 MG TAB PO SCH ×2 (09:03→21:51)
[2019-10-15] MEDS: MULTIVITAMIN TAB PO SCH (09:04)
[2019-10-15] MEDS: MAGNESIUM OXIDE 400 MG TAB PO SCH (09:04)
[2019-10-15] MEDS: clonazePAM 1 MG TAB PO SCH ×2 (09:05→21:50)
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
[2019-10-15] MEDS: ONDANSETRON 4 MG OD TAB PO PRN (16:33)
[2019-10-15] MEDS: OLANZAPINE ZYDIS 10 MG ORALLY DIS. TAB PO SCH (21:52)
[2019-10-15] MEDS: TEMAZEPAM 15 MG CAPSULE PO SCH (21:52)
[2019-10-16] MEDS: LEVOTHYROXINE SODIUM 100 MCG TABLET PO SCH (07:40)
[2019-10-16] MEDS: estradioL 1 MG TAB PO SCH (07:40)
[2019-10-16] MEDS: LITHIUM CARBONATE 300 MG TAB PO SCH ×2 (07:42→20:44)
[2019-10-16] MEDS: lamoTRIgine 100 MG TAB PO SCH ×2 (07:42→20:45)
[2019-10-16] MEDS: MAGNESIUM OXIDE 400 MG TAB PO SCH (07:43)
[2019-10-16] MEDS: MULTIVITAMIN TAB PO SCH (07:43)
[2019-10-16] MEDS: clonazePAM 1 MG TAB PO SCH ×2 (07:45→20:43)
[2019-10-16] MEDS ORDERED: LITHIUM CARBONATE 300 MG TAB PO ONE (11:01)
--- NOTE | 2019-10-16 11:01 | Psychiatric Progress Note ---
Date of Service October 16, 2019 Impression / Recommendations Impression 39-year-old female with history of bipolar disorder type I who is admitted involuntarily for psychotic wendi. She was initially admitted voluntarily, but after striking two patients and demonstrating significant disorganization and paranoia, she had to be placed on a 302 involuntary commitment, and is on a 303 as of 10/11/2019. Multiple medication adjustments have been made and she is demonstrating improvement, but continues to have poor sleep, is disorganized, delusional, with loose associations. MNPR is maintained for poor boundaries, disorganization, and poor sleep. Inpatient psychiatric treatment remains the least restrictive and most appropriate setting for the patient at this time. (1) Bipolar 1 disorder, mixed, severe: 10/07--The patient was admitted to the [facility] ([facility]) on q15 min checks (behavioral with suicide precautions) for safety. The patient will participate in group, recreational, and milieu therapies and will be offered additional individual and family sessions as clinically appropriate. Patient is unable to engage in meaningful discussion around treatment planning at this time. Will offer Zyprexa zydis 10 mg po qhs this hs and continue judicious prns. Effexor XR will be discontinued as manic. Continue Lamictal. Consider lithium. Need additional records re: previous mood stabilizer trials. Confirm amount MJ use as could be contributing factor. 10/08--titrate Zyprexa 20 mg hs, continue prns. Patient is back and forth on signing CHRISTOPHER for [facility] for prior med trials. Relates side effects to Depakote, Trileptal, "who knows what else", probably did have a lithium trial. 10/09--BID dosing for Zyprexa to decrease reliance on prns. Cannot engage in discussion around another atypical or lithium loading at this time. Review of [facility] med rec lists (Seroquel, Depakote, Rexulti, Frontenac, Latuda, Cymbalta, Trileptal, Lexapro, Abilify, Buspar, Lamictal, Neurontin and Lorazepam trials. Klonopin will need tapered when more stable. Will offer Ambien tonight if still unable to sleep. filed for 303 commitment hearing as patient lacks insight into her condition and needs to remain hospitalized for safety. If she would begin to refuse medications by mouth, it is my medical opinion that she would require antipsychotic medication over objection as without treatment for her wendi she would likely suffer or significant disability within the next 30 days. Also reviewed with sw that will need to confirm if she was indeed accepted to [facility] as I do not feel she is in any state to be signing legal documents re: student loans. 10/10 -The patient appears to be responding favorably to Zyprexa 20 mg at bedtime, and says that she feels that she is tolerating it well. She focuses heavily on reporting side effects from various other medications -Although the patient is able to acknowledge that she had been doing fairly well and had been stable until she changed psychiatrists for 5 months ago, she also indicated that during the same. She has experienced a number of psychosocial stressors and upheavals at work that may have contributed to her psychiatric decompensation. -Explained to the patient that Zyprexa 20 mg at bedtime is a good mood stabilizer, but I would also recommend that we increase her dose of lamotrigine from 100 mg twice a day to a dose of 150 mg twice a day, with an intermediary step of 100 mg in the morning and 150 mg at bedtime for 2 weeks before increasing further, as tolerated. The patient indicated understanding and agreement, but notes that, in the past, she feels that she has been somewhat overly sedated by lamotrigine, but agrees to allow us to monitor and titrate as indicated. -The patient was retained at her 302 commitment hearing this morning. The patient was fully cooperative with the hearing and expressed her willingness to adhere with recommended treatment during the hospitalization. The patient's brother was present and provided the patient with support by holding her hand during the hearing. 10/11 - stopped Ambien, -added temazepam 5mg hs plus 15mg hs prn repeat dose if not able to sleep -added lithium carbonate 150mg po bid -grounding processes being reviewed with pt, -male sheet writer seeing with female staff being present to help alleviate her anxiety that occurs 10/12 - limiting stimulation, encouraging sleep, frequent redirection and maintaining plan unchanged for now given further containment of symptoms appearing to occur 10/13 - Continue attempts to limit stimulation in order to encourage sleep, will increase temazepam to 15mg due to poor sleep since admission with limited response to 7.5mg dose - Continue current medication regimen presently - consider need for ongoing adjustments as patient continues to demonstrate disorganized thought process - Ongoing redirection as required, limitation of group programming based on patient's ability to tolerate activity - Maintain MNPR at this time due to poor sleep, disorganization, and remaining inappropriate for a roommate 10/14 -Maintain private room due to poor sleep and ongoing manic/psychotic symptoms. -Coordinated care: Contacted outpatient psychiatrist, Dr. Schneider's office, and left a message for him with his staff advising of patient's hospitalization and presenting symptoms, concerns about medical marijuana. They confirmed that Dr. Schneider was not the certifying physician. Patient reports Dr. Taylor Recinos [facility] medicine was the certifying physician, so we will get a release and send records regarding concerns that cannabis use is worsening her psychosis. Her family also reports concerns about this, and social work will inform them of options including contacting her physician and the dispensary directly given the risk of harm. -Continue current medications, and consider further lithium titration. -We will try to avoid controlled substances given her cannabis use, is currently on 2 benzodiazepines for sleep and antimanic properties. Hopefully will be able to taper down prior to discharge. -Schedule family meeting with mother and brother who are her primary supports. Patient indicates willingness for referrals for therapy and case management. 10/15 - Maintain private room at this time - Will titrate lithium to 300mg BID, begin by offering an initial 150mg dose this morning (300mg total AM dose) - Will order lithium trough for 10/20 in the morning - Will need to schedule a family meeting with brother to assess progress since admission and review discharge/safety planning - Pt was agreeable with referrals for outpatient therapy and a mental health child support case officer Risk Factors Assessment Do You Have Access To A Gun?: No Protective Factors Assessment Employed: Yes Interval History Identifying Information THERESA RYAN is a 39-year-old F who currently lives in [place] with mother, has a history of wendi, and was admitted on 10/07/19 23:23 on a 201 voluntary commitment for disorganized behavior at work. Pt became acutely agitated after arrival on unit and commitment status was converted to a 302. 303 was granted on 10/10. Chief Complaint "I'm just in a lot of pain right now." Review of Systems Notes Constitutional: reports generalized pain related to fibromyalgia Cardiovascular: denied Respiratory: denied Gastrointestinal: denied Neurological: denied Psychiatric: denies symptoms other than stated above Total of at least 10 systems reviewed, pertinent positives as above and in HPI. Sleep Information Total Hours of Sleep: 4.75 Sleep Comments: pt on q-15 minute checks Meal Information Percent Meal Consumed - Breakfast: 100 Percent Meal Consumed - Lunch: 75 Percent Meal Consumed - Dinner: 100 Nutrition Comment: pt was sleeping Subjective Subjective Patient was seen & assessed and interval progress reviewed with treatment team. Staff report the patient continues to present as disorganized, unable to even appropriately complete her signature/date for signing ROIs yesterday. Family was contacted in attempts to schedule a family meeting, they continue to feel patient is not improved enough to productively participate in this meeting. Pt was able to obtain 4-3/4 hours of broken sleep last evening. Pt was seen today to assess progress since admission. Pt states she is "in a lot of pain right now." She states that she is happy her sleep has improved and is feeling a bit better. Pt does admit she is hopeful to take a nap later this morning, as she continues to be tired. Pt reports feeling her mood has been more stable overal l, though she does admit to some moments where "I get more easily agitated" here on the unit. She is unable to provide specific examples. Though she continues to be tangential, she is able to recall several seemingly reality-based incidents she feels may have contributed to her admission. Pt states that her schedule at work had been changed about 3-weeks prior to her admission - with the scheduling adjustments, patient states that the rest of her routine and sleep schedule became unbalanced as well. Pt feels her thoughts have been a bit more clear. She denies SI as well as other needs or concerns today. Physical Exam Psychiatric Orientation: alert and cooperative Apperance: appropriately dressed, appropriately groomed and appeared stated age Eye Contact: good eye contact Motor Behavior: steady gait and station and no abnormal motor movements Speech: normal rate/rhythm/volume of speech (soft tone) Affect: + blunted affect (appearing subdued/mildly sedated - not overtly dep ressed) and mood congruent with affect Mood: no depressed mood ("I'm fine") admits to feeling she gets "more easily agitated" at times Thought Process: goal directed thought process and + circumstantial thought process Thought process remains somewhat disorganized Thought Content: + preoccupation (with her fiance); no delusions and no hopelessness Suicidal Thoughts: denies suicidal thoughts and denies suicidal intent Homicidal Thoughts: denies homicidal thoughts Hallucinations: no auditory hallucinations and no visual hallucinations Cognition: attention grossly intact and language grossly intact Insight: + impaired insight Judgement: + impaired judgement Vital Signs (Past 24 Hours) Last Vital Signs Temp 36.4 C L 10/16/19 06:43 Pulse 114 H 10/16/19 06:43 Resp 20 10/16/19 06:43 BP 117/73 10/16/19 06:43 Pulse Ox 98 10/07/19 23:21 Results & Data ([facility]) Current Inpatient Medications Current Inpatient Medications: Current Inpatient Medications Al Hydrox/Mg Hydrox/Simethicone (Maalox) 30 ml PO Q4H PRN PRN Reason: GI Upset Stop: 11/06/19 23:21 Last Admin: 10/14/19 03:27 Dose: 30 ml Documented by: Benztropine Mesylate (Cogentin) 1 mg PO BID PRN PRN Reason: Muscle Spasm Stop: 11/08/19 12:02 Bismuth Subsalicylate (Kaopectate) 15 ml PO PRN PRN PRN Reason: Loose Stool Stop: 11/06/19 23:21 Clonazepam (Klonopin) 1 mg PO BID [facility] Stop: 11/07/19 20:59 Last Admin: 10/16/19 07:45 Dose: 1 mg Documented by: Clonazepam (Klonopin) 1 mg PO Q8 PRN PRN Reason: Anxiety/Agitation Stop: 11/07/19 09:15 Last Admin: 10/13/19 17:19 Dose: 1 mg Documented by: Estradiol (Estrace) 1 mg PO DAILY [facility] Stop: 11/07/19 08:59 Last Admin: 10/16/19 07:40 Dose: 1 mg Documented by: Hydroxyzine HCl (Vistaril) 50 mg PO HSZ PRN PRN Reason: Insomnia Stop: 11/06/19 23:21 Last Admin: 10/15/19 02:44 Dose: 50 mg Documented by: Hydroxyzine HCl (Vistaril) 25 mg PO Q4H PRN PRN Reason: Anxiety Stop: 11/06/19 23:21 Last Admin: 10/14/19 16:02 Dose: 25 mg Documented by: Ibuprofen (Motrin) 600 mg PO Q6H PRN PRN Reason: Pain Stop: 11/07/19 13:45 Last Admin: 10/14/19 03:31 Dose: 600 mg Documented by: Lamotrigine (Lamictal) 100 mg PO QAM [facility] Stop: 11/11/19 08:59 Last Admin: 10/16/19 07:42 Dose: 100 mg Documented by: Lamotrigine (Lamictal) 150 mg PO HS [facility] Stop: 11/10/19 21:59 Last Admin: 10/15/19 21:51 Dose: 150 mg Documented by: Levothyroxine Sodium (Synthroid) 100 mcg PO DAILYBB [facility] Stop: 11/07/19 06:29 Last Admin: 10/16/19 07:40 Dose: 100 mcg Documented by: Frontenac Carbonate (Frontenac Carbonate) 300 mg PO BID [facility] Stop: 11/15/19 20:59 Frontenac Carbonate (Frontenac Carbonate) 150 mg PO ONE ONE Stop: 10/16/19 11:02 Magnesium Hydroxide (Milk Of Magnesia) 30 ml PO DAILY PRN PRN Reason: Constipation Stop: 11/06/19 23:21 Magnesium Oxide (Mag-Ox) 800 mg PO DAILY [facility] Stop: 11/07/19 08:59 Last Admin: 10/16/19 07:43 Dose: 800 mg Documented by: Multivitamins (Multivitamin Tab) 1 tab PO DAILY [facility] Stop: 11/07/19 08:59 Last Admin: 10/16/19 07:43 Dose: 1 tab Documented by: Olanzapine (Zyprexa) 10 mg IM Q4 PRN PRN Reason: Agitation Stop: 11/07/19 09:06 Last Admin: 10/08/19 09:31 Dose: 10 mg Documented by: Olanzapine (Zyprexa Zydis Od) 5 mg PO Q4 PRN PRN Reason: Anxiety/Agitation Stop: 11/07/19 12:59 Last Admin: 10/14/19 12:02 Dose: 5 mg Documented by: Olanzapine (Zyprexa Zydis Od) 20 mg PO HS [facility] Stop: 11/08/19 21:59 Last Admin: 10/15/19 21:52 Dose: 20 mg Documented by: Ondansetron HCl (Zofran Odt) 4 mg PO Q6H PRN PRN Reason: Nausea Stop: 11/12/19 09:00 Last Admin: 10/15/19 16:33 Dose: 4 mg Documented by: Sodium Chloride ([place] Nasal) 1 - 2 sprays NA PRN PRN PRN Reason: Nasal Dryness/Congestion Stop: 11/06/19 23:21 Temazepam (Restoril) 30 mg PO HSZ [facility] Stop: 11/13/19 21:59 Last Admin: 10/15/19 21:52 Dose: 30 mg Documented by: Mental Health & Subst Abuse Tx Psychiatrist Name of Psychiatrist: [facility] Psychiatrist's Date of Appointment with Psychiatrist: 10/29/19 Time of Appointment with Psychiatrist: 11:50 a.m. Psychiatric Appointment Comment: [facility] [address], [place] [address] Therapist Name of Therapist: Denies/None Segmental Paver Installer Name of Segmental Paver Installer: Denies/None Post Discharge Appointments Primary Care Physician Name Of Family Doctor: [facility] - Dr. Zhong Primary Care Provider Appointment Comment: [address] [place] [address] , [address], [place] [address] Other #1: Name of Aftercare Appointment: [facility] - Dr. Cullen Phone Number of Aftercare Appointment: [phone] Aftercare Appointment Comment: [address] [facility], [place] [address] Contact Information Discharge Discharge Address: [address] [place] [address], [address], [place] [address]
[2019-10-16] MEDS: IBUPROFEN 600 MG TAB PO PRN ×2 (11:03→21:57)
--- NOTE | 2019-10-16 12:43 | Communication Note ---
Date of Service: October 16, [address] [facility] and spoke to Dr. Vazquez re: patient's current symptoms and concerns that they were exacerbated by marijuana use (as he ce rtified her for medical marijuana). Also relayed that her family had noted worsening symptoms when she started medical marijuana and that patient has poor insight into the connection. He stated that he would not recertify her, and requested discharge records. Advised that we would send them providing she signed the release at discharge.
[2019-10-16] MEDS: TEMAZEPAM 15 MG CAPSULE PO SCH (20:46)
[2019-10-16] MEDS: OLANZAPINE ZYDIS 10 MG ORALLY DIS. TAB PO SCH (20:46)
[2019-10-17] MEDS: estradioL 1 MG TAB PO SCH (07:40)
[2019-10-17] MEDS: LEVOTHYROXINE SODIUM 100 MCG TABLET PO SCH (07:40)
[2019-10-17] MEDS: LITHIUM CARBONATE 300 MG TAB PO SCH ×2 (07:40→21:16)
[2019-10-17] MEDS: lamoTRIgine 100 MG TAB PO SCH ×2 (07:40→21:16)
[2019-10-17] MEDS: MAGNESIUM OXIDE 400 MG TAB PO SCH (07:40)
[2019-10-17] MEDS: MULTIVITAMIN TAB PO SCH (07:41)
[2019-10-17] MEDS: clonazePAM 1 MG TAB PO SCH ×2 (07:42→21:15)
--- NOTE | 2019-10-17 12:12 | Psychiatric Progress Note ---
Date of Service October 17, 2019 Impression / Recommendations Impression 39-year-old female with history of bipolar disorder type I who is admitted involuntarily for psychotic wendi. She was initially admitted voluntarily, but after striking two patients and demonstrating significant disorganization and paranoia, she had to be placed on a 302 involuntary commitment, and is on a 303 as of 10/11/2019. Multiple medication adjustments have been made and she is demonstrating improvement, but continues to have poor sleep. She remains somewhat disorganized, delusional, with loose associations - though there have been improvements in these areas overall. MNPR is maintained for disorgan ization and poor sleep. Inpatient psychiatric treatment remains the least restrictive and most appropriate setting for the patient at this time. (1) Bipolar 1 disorder, mixed, severe: 10/07--The patient was admitted to the [facility] ([facility]) on q15 min checks (behavioral with suicide precautions) for safety. The patient will participate in group, recreational, and milieu therapies and will be offered additional individual and family sessions as clinically appropriate. Patient is unable to engage in meaningful discussion around treatment planning at this time. Will offer Zyprexa zydis 10 mg po qhs this hs and continue judicious prns. Effexor XR will be discontinued as manic. Continue Lamictal. Consider lithium. Need additional records re: previous mood stabilizer trials. Confirm amount MJ use as could be contributing factor. 10/08--titrate Zyprexa 20 mg hs, continue prns. Patient is back and forth on signing CHRISTOPHER for [employer] for prior med trials. Relates side effects to Depakote, Trileptal, "who knows what else", probably did have a lithium trial. 10/09--BID dosing for Zyprexa to decrease reliance on prns. Cannot engage in discussion around another atypical or lithium loading at this time. Review of [employer] med rec lists (Seroquel, Depakote, Rexulti, Rupert, Latuda, Cymbalta, Trileptal, Lexapro, Abilify, Buspar, Lamictal, Neurontin and Lorazepam trials. Klonopin will need tapered when more stable. Will offer Ambien tonight if still unable to sleep. filed for 303 commitment hearing as patient lacks insight into her condition and needs to remain hospitalized for safety. If she would begin to refuse medications by mouth, it is my medical opinion that she would require antipsychotic medication over objection as without treatment for her wendi she would likely suffer or significant disability within the next 30 days. Also reviewed with sw that will need to confirm if she was indeed accepted to [facility] as I do not feel she is in any state to be signing legal documents re: student loans. 10/10 -The patient appears to be responding favorably to Zyprexa 20 mg at bedtime, and says that she feels that she is tolerating it well. She focuses heavily on reporting side effects from various other medications -Although the patient is able to acknowledge that she had been doing fairly well and had been stable until she changed psychiatrists for 5 months ago, she also indicated that during the same. She has experienced a number of psychosocial stressors and upheavals at work that may have contributed to her psychiatric decompensation. -Explained to the patient that Zyprexa 20 mg at bedtime is a good mood stabilizer, but I would also recommend that we increase her dose of lamotrigine from 100 mg twice a day to a dose of 150 mg twice a day, with an intermediary step of 100 mg in the morning and 150 mg at bedtime for 2 weeks before increasing further, as tolerated. The patient indicated understanding and agreement, but notes that, in the past, she feels that she has been somewhat overly sedated by lamotrigine, but agrees to allow us to monitor and titrate as indicated. -The patient was retained at her [address] [place] [address] hearing this morning. The patient was fully cooperative with the hearing and expressed her willingness to adhere with recommended treatment during the hospitalization. The patient's brother was present and provided the patient with support by holding her hand during the hearing. 10/11 - stopped Ambien, -added temazepam 5mg hs plus 15mg hs prn repeat dose if not able to sleep -added lithium carbonate 150mg po bid -grounding processes being reviewed with pt, -male keno writer seeing with female staff being present to help alleviate her anxiety that occurs 10/12 - limiting stimulation, encouraging sleep, frequent redirection and maintaining plan unchanged for now given further containment of symptoms appearing to occur 10/13 - Continue attempts to limit stimulation in order to encourage sleep, will increase temazepam to 15mg due to poor sleep since admission with limited response to 7.5mg dose - Continue current medication regimen presently - consider need for ongoing adjustments as patient continues to demonstrate disorganized thought process - Ongoing redirection as required, limitation of group programming based on patient's ability to tolerate activity - Maintain MNPR at this time due to poor sleep, disorganization, and remaining inappropriate for a roommate 10/14 -Maintain private room due to poor sleep and ongoing manic/psychotic symptoms. -Coordinated care: Contacted outpatient psychiatrist, Dr. Schneider's office, and left a message for him with his staff advising of patient's hospitalization and presenting symptoms, concerns about medical marijuana. They confirmed that Dr. Schneider was not the certifying physician. Patient reports Dr. Taylor Recinos [facility] was the certifying physician, so we will get a release and send records regarding concerns that cannabis use is worsening her psychosis. Her family also reports concerns about this, and social work will inform them of options including contacting her physician and the dispensary directly given the risk of harm. -Continue current medications, and consider further lithium titration. -We will try to avoid controlled substances given her cannabis use, is currently on 2 benzodiazepines for sleep and antimanic properties. Hopefully will be able to taper down prior to discharge. -Schedule family meeting with mother and brother who are her primary supports. Patient indicates willingness for referrals for therapy and case management. 10/15 - Maintain private room at this time - Will titrate lithium to 300mg BID, begin by offering an initial 150mg dose this morning (300mg total AM dose) - Will order lithium trough for 10/20 in the morning - Will need to schedule a family meeting with brother to assess progress since admission and review discharge/safety planning - Pt was agreeable with referrals for outpatient therapy and a mental health rehabilitation caseworker 10/16 - Maintain private room. Behavior is more appropriate; however, patient continues to get poor sleep which is not helpful for her treatment - Continue current medication regimen - lithium titrated yesterday - Continuing to coordinate with family regarding scheduling a family meeting to discuss safety and discharge planning - Pt remains agreeable with additional outpatient psychiatric services on discharge (2) Fibromyalgia: 10/16 - Continues to report pain related to fibromyalgia diagnosis - We were able to confirm a prn tramadol prescription provided as recently as 09/27/2019 - Will have tramadol 50mg q6h available as needed for fibromyalgia pain Risk Factors Assessment Do You Have Access To A Gun?: No Protective Factors Assessment Employed: Yes Interval History Identifying Information THERESA RYAN is a 39-year-old F who currently lives in [place] with mother, has a history of wendi, and was admitted on 10/07/19 23:23 on a 201 voluntary commitment for disorganized behavior at work. Pt became acutely agitated after arrival on unit and commitment status was converted to a 302. 303 was granted on 10/10. Chief Complaint "Um, my fibromyalgia is acting up. Other than that, I'm just a little tired." Review of Systems Notes Constitutional: reports generalized pain related to fibromyalgia; fatigue Cardiovascular: denied Respiratory: denied Gastrointestinal: denied Neurological: denied Psychiatric: denies symptoms other than stated above Total of at least 10 systems reviewed, pertinent positives as above and in HPI. Sleep Information Total Hours of Sleep: 3.25 Sleep Comments: pt on q-15 minute checks Meal Information Percent Meal Consumed - Breakfast: 100 Percent Meal Consumed - Lunch: 0 Percent Meal Consumed - Dinner: 90 Nutrition Comment: sleeping Subjective Subjective Patient was seen & assessed and interval progress reviewed with nursing and social work. 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 It was also reported that patient reported some paranoid thought content last evening. Pt is awaiting meeting with the [facility] to open her case for case management services. Pt was seen today to assess progress since admission. She does inform this provider she is experiencing pain presently, related to her fibromyalgia. Pt admits she is feeling tired today - though admits she had short, but at least uninterrupted sleep last evening. 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 Pt indicates that these classes are scheduled to start in February and it is a 1-year program. She admits she is not sure she will be able to cont inue working while attending school and is worried about this. Pt was updated on our desire to schedule a family meeting with her family to discuss discharge planning. Pt admits that she is feeling better with recent medication adjustments. She states she feels she is getting a lot out of group programming, and is denying disorganized thoughts or confusion presently. She denies SI and other needs or concerns at this time. Physical Exam Psychiatric Orientation: alert, oriented x 3 and cooperative Apperance: appropriately dressed, appropriately groomed and appeared stated age Eye Contact: + fair eye contact (closing her eyes intermittently, appearing tired) Motor Behavior: no abnormal motor movements (observed while sitting on edge of bed) and + psychomotor retardation (appearing fatigued/subdued - motor movements slowed) Speech: + abnormal rate/rhythm/volume of speech (soft tone, speech seems slowed ) Affect: + blunted affect (appearing subdued, not overtly depressed) Mood: no depressed mood ("I'm just kind of here. I'd like to go.") Thought Process: goal directed thought process and clear/coherent thought process This seems to continue to fluctuate throughout the day - presently she is organized and thoughts seem clear Thought Content: reality based without delusions; not paranoid Content of thoughts also seems to fluctuate throughout the day - patient does not offer any delusional or paranoid thought content during evaluation today Suicidal Thoughts: denies suicidal thoughts and denies suicidal intent Homicidal Thoughts: denies homicidal thoughts Hallucinations: no auditory hallucinations and no visual hallucinations Cognition: attention grossly intact and language grossly intact Insight: + impaired insight (though seems to be slowing improving) Judgement: + impaired judgement Vital Signs (Past 24 Hours) Last Vital Signs Temp 36.4 C L 10/17/19 06:24 Pulse 105 H 10/17/19 06:25 Resp 20 10/17/19 06:24 BP 150/87 H 10/17/19 06:25 Pulse Ox 98 10/07/19 23:21 Results & Data ([facility]) Current Inpatient Medications Current Inpatient Medications: Current Inpatient Medications Al Hydrox/Mg Hydrox/Simethicone (Maalox) 30 ml PO Q4H PRN PRN Reason: GI Upset Stop: 11/06/19 23:21 Last Admin: 10/14/19 03:27 Dose: 30 ml Documented by: Benztropine Mesylate (Cogentin) 1 mg PO BID PRN PRN Reason: Muscle Spasm Stop: 11/08/19 12:02 Bismuth Subsalicylate (Kaopectate) 15 ml PO PRN PRN PRN Reason: Loose Stool Stop: 11/06/19 23:21 Clonazepam (Klonopin) 1 mg PO BID [facility] Stop: 11/07/19 20:59 Last Admin: 10/17/19 07:42 Dose: 1 mg Documented by: Clonazepam (Klonopin) 1 mg PO Q8 PRN PRN Reason: Anxiety/Agitation Stop: 11/07/19 09:15 Last Admin: 10/13/19 17:19 Dose: 1 mg Documented by: Estradiol (Estrace) 1 mg PO DAILY [facility] Stop: 11/07/19 08:59 Last Admin: 10/17/19 07:40 Dose: 1 mg Documented by: Hydroxyzine HCl (Vistaril) 50 mg PO HSZ PRN PRN Reason: Insomnia Stop: 11/06/19 23:21 Last Admin: 10/15/19 02:44 Dose: 50 mg Documented by: Hydroxyzine HCl (Vistaril) 25 mg PO Q4H PRN PRN Reason: Anxiety Stop: 11/06/19 23:21 Last Admin: 10/16/19 11:04 Dose: 25 mg Documented by: Ibuprofen (Motrin) 600 mg PO Q6H PRN PRN Reason: Pain Stop: 11/07/19 13:45 Last Admin: 10/16/19 21:57 Dose: 600 mg Documented by: Lamotrigine (Lamictal) 100 mg PO QAM [facility] Stop: 11/11/19 08:59 Last Admin: 10/17/19 07:40 Dose: 100 mg Documented by: Lamotrigine (Lamictal) 150 mg PO HS [facility] Stop: 11/10/19 21:59 Last Admin: 10/16/19 20:45 Dose: 150 mg Documented by: Levothyroxine Sodium (Synthroid) 100 mcg PO DAILYBB [facility] Stop: 11/07/19 06:29 Last Admin: 10/17/19 07:40 Dose: 100 mcg Documented by: Rupert Carbonate (Rupert Carbonate) 300 mg PO BID [facility] Stop: 11/15/19 20:59 Last Admin: 10/17/19 07:40 Dose: 300 mg Documented by: Magnesium Hydroxide (Milk Of Magnesia) 30 ml PO DAILY PRN PRN Reason: Constipation Stop: 11/06/19 23:21 Magnesium Oxide (Mag-Ox) 800 mg PO DAILY [facility] Stop: 11/07/19 08:59 Last Admin: 10/17/19 07:40 Dose: 800 mg Documented by: Multivitamins (Multivitamin Tab) 1 tab PO DAILY [facility] Stop: 11/07/19 08:59 Last Admin: 10/17/19 07:41 Dose: 1 tab Documented by: Olanzapine (Zyprexa) 10 mg IM Q4 PRN PRN Reason: Agitation Stop: 11/07/19 09:06 Last Admin: 10/08/19 09:31 Dose: 10 mg Documented by: Olanzapine (Zyprexa Zydis Od) 5 mg PO Q4 PRN PRN Reason: Anxiety/Agitation Stop: 11/07/19 12:59 Last Admin: 10/14/19 12:02 Dose: 5 mg Documented by: Olanzapine (Zyprexa Zydis Od) 20 mg PO HS [facility] Stop: 11/08/19 21:59 Last Admin: 10/16/19 20:46 Dose: 20 mg Documented by: Ondansetron HCl (Zofran Odt) 4 mg PO Q6H PRN PRN Reason: Nausea Stop: 11/12/19 09:00 Last Admin: 10/15/19 16:33 Dose: 4 mg Documented by: Sodium Chloride ([place] Nasal) 1 - 2 sprays NA PRN PRN PRN Reason: Nasal Dryness/Congestion Stop: 11/06/19 23:21 Temazepam (Restoril) 30 mg PO HSZ [facility] Stop: 11/13/19 21:59 Last Admin: 10/16/19 20:46 Dose: 30 mg Documented by: Tramadol HCl (Ultram) 50 mg PO Q6 PRN PRN Reason: Pain Stop: 11/16/19 11:59 Mental Health & Subst Abuse Tx Psychiatrist Name of Psychiatrist: [facility] Psychiatrist's Date of Appointment with Psychiatrist: 10/29/19 Time of Appointment with Psychiatrist: 11:50 a.m. Psychiatric Appointment Comment: [address], [address], [place] [address] Therapist Name of Therapist: Carolyn Ramirez Therapist's Date of Therapist Appointment: 11/06/19 Time of Therapist Appointment: 8:30 a.m. Therapy Appointment Comment: [address], [address], [place] [address] Papier Mache Molder Name of Papier Mache Molder: [employer] Phone Number for Papier Mache Molder: [phone] Case Management Appointment Comment: [address], [address], [place] Post Discharge Appointments Primary Care Physician Name Of Family Doctor: [facility] - Dr. Zhong [facility] Time of Appointment with PCP: As needed Provider Appointment Comment: [address] [place] [address] , [address], [place] [address] Other #1: Name of Aftercare Appointment: [facility] - Dr. Cullen Phone Number of Aftercare Appointment: [phone] Aftercare Appointment Comment: [address], [place] [address] Contact Information Discharge Discharge Address: [address], [address], [place] [address]
[2019-10-17] MEDS: OLANZAPINE ZYDIS 5 MG ORALLY DIS. TAB PO PRN (20:39)
[2019-10-17] MEDS: TEMAZEPAM 15 MG CAPSULE PO SCH (21:17)
[2019-10-17] MEDS: OLANZAPINE ZYDIS 10 MG ORALLY DIS. TAB PO SCH (21:17)
[2019-10-18] MEDS: estradioL 1 MG TAB PO SCH (07:53)
[2019-10-18] MEDS: LEVOTHYROXINE SODIUM 100 MCG TABLET PO SCH (07:53)
[2019-10-18] MEDS: clonazePAM 1 MG TAB PO SCH ×2 (07:53→21:56)
[2019-10-18] MEDS: MAGNESIUM OXIDE 400 MG TAB PO SCH (07:54)
[2019-10-18] MEDS: MULTIVITAMIN TAB PO SCH (07:54)
[2019-10-18] MEDS: LITHIUM CARBONATE 300 MG TAB PO SCH ×2 (07:54→21:57)
[2019-10-18] MEDS: lamoTRIgine 100 MG TAB PO SCH ×2 (07:54→21:56)
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
[2019-10-18] MEDS: OLANZAPINE ZYDIS 5 MG ORALLY DIS. TAB PO PRN (19:40)
[2019-10-18] MEDS: TEMAZEPAM 15 MG CAPSULE PO SCH (21:57)
[2019-10-18] MEDS: OLANZAPINE ZYDIS 10 MG ORALLY DIS. TAB PO SCH (21:58)
[2019-10-19] MEDS: estradioL 1 MG TAB PO SCH (07:48)
[2019-10-19] MEDS: LEVOTHYROXINE SODIUM 100 MCG TABLET PO SCH (07:48)
[2019-10-19] MEDS: lamoTRIgine 100 MG TAB PO SCH ×2 (07:49→21:54)
[2019-10-19] MEDS: MAGNESIUM OXIDE 400 MG TAB PO SCH (07:49)
[2019-10-19] MEDS: clonazePAM 1 MG TAB PO SCH (07:49)
[2019-10-19] MEDS: LITHIUM CARBONATE 300 MG TAB PO SCH ×2 (07:49→21:55)
[2019-10-19] MEDS: MULTIVITAMIN TAB PO SCH (07:49)
[2019-10-19] MEDS ORDERED: clonazePAM 0.5 MG TAB PO PRN (09:29)
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
[2019-10-19] MEDS: IBUPROFEN 600 MG TAB PO PRN (12:44)
[2019-10-19] MEDS: ONDANSETRON 4 MG OD TAB PO PRN (16:26)
[2019-10-19] MEDS: clonazePAM 0.5 MG TAB PO SCH (21:53)
[2019-10-19] MEDS: TEMAZEPAM 15 MG CAPSULE PO SCH (21:55)
[2019-10-19] MEDS: OLANZAPINE ZYDIS 10 MG ORALLY DIS. TAB PO SCH (21:56)
[2019-10-20] MEDS: estradioL 1 MG TAB PO SCH (08:08)
[2019-10-20] MEDS: LEVOTHYROXINE SODIUM 100 MCG TABLET PO SCH (08:08)
[2019-10-20] MEDS: clonazePAM 0.5 MG TAB PO SCH ×2 (08:10→21:31)
[2019-10-20] MEDS: LITHIUM CARBONATE 300 MG TAB PO SCH ×2 (08:11→21:31)
[2019-10-20] MEDS: lamoTRIgine 100 MG TAB PO SCH ×2 (08:11→21:31)
[2019-10-20] MEDS: MAGNESIUM OXIDE 400 MG TAB PO SCH (08:12)
[2019-10-20] MEDS: MULTIVITAMIN TAB PO SCH (08:12)
[2019-10-20 08:56] LABS: Chol HDL Ratio 2; Cholesterol 180 mg/dl (0-200); Glucose Fasting 88 mg/dl (70-99); HDL Cholesterol 101 mg/dl; LDL Cholesterol Calculated 68 mg/dl; Triglycerides 56 mg/dl (0-150); VLDL Cholesterol 11 mg/dl
--- NOTE | 2019-10-20 09:12 | Psychiatric Progress Note ---
Date of Service October 20, 2019 Impression / Recommendations Impression 39-year-old female with history of bipolar disorder type I who is admitted involuntarily for psychotic wendi. She was initially admitted voluntarily, but after striking two patients and demonstrating significant disorganization and paranoia, she had to be placed on a 302 involuntary commitment, and is on a 303 as of 10/11/2019. She was started on Zyprexa and now lithium to address wendi. Note: italics in plan were reviewed as earlier course of treatment. Also, risk factors again reviewed and remain unchanged. (1) Bipolar 1 disorder, mixed, severe: 10/07--The patient was admitted to the [facility] ([facility] mental health unit) on q15 min checks (behavioral with suicide precautions) for safety. The patient will participate in group, recreational, and milieu therapies and will be offered additional individual and family sessions as clinically appropriate. Patient is unable to engage in meaningful discussion around treatment planning at this time. Will offer Zyprexa zydis 10 mg po qhs this hs and continue judicious prns. Effexor XR will be discontinued as manic. Continue Lamictal. Consider lithium. Need additional records re: previous mood stabilizer trials. Confirm amount MJ use as could be contributing factor. 10/08--titrate Zyprexa 20 mg hs, continue prns. Patient is back and forth on signing CHRISTOPHER for [facility] for prior med trials. Relates side effects to Depakote, Trileptal, "who knows what else", probably did have a lithium trial. 10/09--BID dosing for Zyprexa to decrease reliance on prns. Cannot engage in d iscussion around another atypical or lithium loading at this time. Review of [facility] med rec lists (Seroquel, Depakote, Rexulti, [place], Latuda, Cymbalta, Trileptal, Lexapro, Abilify, Buspar, Lamictal, Neurontin and Lorazepam trials. Klonopin will need tapered when more stable. Will offer Ambien tonight if still unable to sleep. filed for 303 commitment hearing as patient lacks insight into her condition and needs to remain hospitalized for safety. If she would begin to refuse medications by mouth, it is my medical opinion that she would require antipsychotic medication over objection as without treatment for her wendi she would likely suffer or significant disability within the next 30 days. Also reviewed with sw that will need to confirm if she was indeed accepted to [facility] as I do not feel she is in any state to be signing legal documents re: student loans. 10/10 -The patient appears to be responding favorably to Zyprexa 20 mg at bedtime, and says that she feels that she is tolerating it well. She focuses heavily on reporting side effects from various other medications -Although the patient is able to acknowledge that she had been doing fairly well and had been stable until she changed psychiatrists for 5 months ago, she also indicated that during the same. She has experienced a number of psychosocial stressors and upheavals at work that may have contributed to her psychiatric decompensation. -Explained to the patient that Zyprexa 20 mg at bedtime is a good mood stabilizer, but I would also recommend that we increase her dose of lamotrigine from 100 mg twice a day to a dose of 150 mg twice a day, with an intermediary step of 100 mg in the morning and 150 mg at bedtime for 2 weeks before increasing further, as tolerated. The patient indicated understanding and agreement, but notes that, in the past, she feels that she has been somewhat overly sedated by lamotrigine, but agrees to allow us to monitor and titrate as indicated. -The patient was retained at her 302 commitment hearing this morning. The patient was fully cooperative with the hearing and expressed her willingness to adhere with recommended treatment during the hospitalization. The patient's brother was present and provided the patient with support by holding her hand during the hearing. 10/11 - stopped Ambien, -added temazepam 5mg hs plus 15mg hs prn repeat dose if not able to sleep -added lithium carbonate 150mg po bid -grounding processes being reviewed with pt, -male television writer seeing with female staff being present to help alleviate her anxiety that occurs 10/12 - limiting stimulation, encouraging sleep, frequent redirection and maintaining plan unchanged for now given further containment of symptoms appear ing to occur 10/13 - Continue attempts to limit stimulation in order to encourage sleep, will increase temazepam to 15mg due to poor sleep since admission with limited response to 7.5mg dose - Continue current medication regimen presently - consider need for ongoing adjustments as patient continues to demonstrate disorganized thought process - Ongoing redirection as required, limitation of group programming based on patient's ability to tolerate activity - Maintain MNPR at this time due to poor sleep, disorganization, and remaining inappropriate for a roommate 10/14 -Maintain private room due to poor sleep and ongoing manic/psychotic symptoms. -Coordinated care: Contacted outpatient psychiatrist, Dr. Schneider's office, and left a message for him with his staff advising of patient's hospitalization and presenting symptoms, concerns about medical marijuana. They confirmed that Dr. Schneider was not the certifying physician. Patient reports Dr. Taylor Recinos [facility] medicine was the certifying physician, so we will get a release and send records regarding concerns that cannabis use is worsening her psychosis. Her family also reports concerns about this, and social work will inform them of options including contacting her physician and the dispensary directly given the risk of harm. -Continue current medications, and consider further lithium titration. -We will try to avoid controlled substances given her cannabis use, is currently on 2 benzodiazepines for sleep and antimanic properties. Hopefully will be able to taper down prior to discharge. -Schedule family meeting with mother and brother who are her primary supports. Patient indicates willingness for referrals for therapy and case management. 10/15 - Maintain private room at this time - Will titrate lithium to 300mg BID, begin by offering an initial 150mg dose this morning (300mg total AM dose) - Will order lithium trough for 10/20 in the morning - Will need to schedule a family meeting with brother to assess progress since admission and review discharge/safety planning - Pt was agreeable with referrals for outpatient therapy and a mental health field case manager 10/16 - Maintain private room. Behavior is more appropriate; however, patient continues to get poor sleep which is not helpful for her treatment - Continue current medication regimen - lithium titrated yesterday - Continuing to coordinate with family regarding scheduling a family meeting to discuss safety and discharge planning - Pt remains agreeable with additional outpatient psychiatric services on discharge 10/17 -Maintained medically necessary private room at this time. Sleep disturbance remains a central issue for this patient. -Patient indicates that she is tolerating lithium carbonate 300 mg twice a day. A lithium level is scheduled to be achieved on 10/21/2019. Today, her dose of lithium carbonate is being increased to 300 mg in the morning and 450 mg in the evening, pending her upcoming lithium level early next week. -An ongoing issue identified by the patient, and by the patient's brother, is the report that the patient and her mother tend to bicker, and this bickering is felt by the patient's brother to trigger the patient in several ways, including defiance regarding medication adherence. -We will continue to work with the patient around the issue of her need to move past insisting that her mother's behavior changes and towards focusing more on those behaviors which might result in the patient's mother feeling more comfortable "backing off." -The patient's family indicates that the patient may harbor an erotomanic delusion regarding a former male friend. When asked about this relationship today the patient acknowledges that the relationship is not romantic, but that she hopes to maintain the individual as a friend. 10/18--wendi is improving, begin Klonopin taper to 1.5 mg total daily dose today then 1 mg total daily dose starting 10/19. 10/19--lithium level as scheduled in the am, will decrease frequency of ibuprofen and Ultram prns and ask rounders on 10/20 to reassess use after lithium level obtained. Repeat UA, likely just polyuria from lithium (2) Fibromyalgia: 10/16 - Continues to report pain related to fibromyalgia diagnosis - We were able to confirm a prn tramadol prescription provided as recently as 09/27/2019 - Will have tramadol 50mg q6h available as needed for fibromyalgia pain 10/17 -The patient reports today that she is in less pain than yesterday. Inventory Assets Strengths: Pleasant. Good social skills. Motivated to change and improved. Motivated to train become employed. Needs: Improved individual coping strategies. Assistance and redirecting the patient's focus on to her own behaviors and needs for improvement. Risk Factors Assessment Male: No : Yes Do You Have Access To A Gun?: No Health Problems: Yes Mental Health Diagnoses: Yes Substance Use Disorders: No Previous Attempt: No Family History of Suicide: No Previous Psychiatric Hospitalization: Yes Hopelessness: No Smoker: No Protective Factors Assessment : No Responsible for Young Children: No Employed: Yes Stable Relationships: Yes Supportive Family: Yes Good Rapport with Provider: Yes Absence of Any Risk Factors Above: No Interval History Identifying Information THERESA RYAN is a 39-year-old F who currently lives in [place] with mother, has a history of wendi, and was admitted on 10/07/19 23:23 on a 201 voluntary commitment for disorganized behavior at work. Pt became acutely agitated after arrival on unit and commitment status was converted to a 302. 303 was granted on 10/10. Chief Complaint "my belly isn't normal but I am glad I got promoted". Review of Systems Sleep Information Total Hours of Sleep: 4 Meal Information Percent Meal Consumed - Breakfast: 100 Percent Meal Consumed - Lunch: 100 Percent Meal Consumed - Dinner: 50 Nutrition Comment: sleeping Subjective Subjective Patient was seen & assessed and interval progress reviewed with nursing and social work. She was moved out of the intensive treatment area as removed from elopement precautions as mood continues to stabilize. Less sedated this am but quite talkative about somatic complaints but they are reality based--she knows that she isn't as s/p hysterectomy. Knows her incontinence does predate her use of lithium. Wrote down appropriate questions and answered to her medications. She continues to report work as a stress. Physical Exam Psychiatric Orientation: alert and oriented to time Apperance: appropriately groomed Eye Contact: good eye contact Motor Behavior: no abnormal motor movements Speech: no pressured speech (but hyperverbal still) Affect: euthymic affect Mood: + anxious mood Thought Process: + circumstantial thought process Thought Content: + preoccupation and reality based without delusions Suicidal Thoughts: denies suicidal thoughts Homicidal Thoughts: denies homicidal thoughts Hallucinations: no auditory hallucinations and no visual hallucinations Cognition: + attention not intact Estimated Intelligence: consistent with education level Insight: + limited insight Judgement: + limited judgement Vital Signs (Past 24 Hours) Last Vital Signs Temp 36.5 C 10/20/19 06:40 Pulse 103 H 10/20/19 06:42 Resp 16 10/20/19 06:40 BP 124/81 10/20/19 06:42 Pulse Ox 98 10/07/19 23:21 Results & Data ([facility]) Laboratory Results Laboratory Results - last 24 hr 10/20/19 07:51 Fasting Glucose 88 Triglycerides 56 Cholesterol 180 LDL Cholesterol, Calc 68 VLDL Cholesterol, Calc 11 HDL Cholesterol 101 Cholesterol/HDL Ratio 2 Current Inpatient Medications Current Inpatient Medications: Current Inpatient Medications Al Hydrox/Mg Hydrox/Simethicone (Maalox) 30 ml PO Q4H PRN PRN Reason: GI Upset Stop: 11/06/19 23:21 Last Admin: 10/14/19 03:27 Dose: 30 ml Documented by: Benztropine Mesylate (Cogentin) 1 mg PO BID PRN PRN Reason: Muscle Spasm Stop: 11/08/19 12:02 Bismuth Subsalicylate (Kaopectate) 15 ml PO PRN PRN PRN Reason: Loose Stool Stop: 11/06/19 23:21 Clonazepam (Klonopin) 0.5 mg PO Q8 PRN PRN Reason: Anxiety/Agitation Stop: 11/07/19 09:15 Clonazepam (Klonopin) 0.5 mg PO BID KEY Stop: 11/18/19 20:59 Last Admin: 10/20/19 08:10 Dose: 0.5 mg Documented by: Estradiol (Estrace) 1 mg PO DAILY [facility] Stop: 11/07/19 08:59 Last Admin: 10/20/19 08:08 Dose: 1 mg Documented by: Hydroxyzine HCl (Vistaril) 50 mg PO HSZ PRN PRN Reason: Insomnia Stop: 11/06/19 23:21 Last Admin: 10/18/19 00:38 Dose: 50 mg Documented by: Hydroxyzine HCl (Vistaril) 25 mg PO Q4H PRN PRN Reason: Anxiety Stop: 11/06/19 23:21 Last Admin: 10/17/19 18:26 Dose: 25 mg Documented by: Ibuprofen (Motrin) 600 mg PO Q6H PRN PRN Reason: Pain Stop: 11/07/19 13:45 Last Admin: 10/19/19 12:44 Dose: 600 mg Documented by: Lamotrigine (Lamictal) 100 mg PO QAM [facility] Stop: 11/11/19 08:59 Last Admin: 10/20/19 08:11 Dose: 100 mg Documented by: Lamotrigine (Lamictal) 150 mg PO HS [facility] Stop: 11/10/19 21:59 Last Admin: 10/19/19 21:54 Dose: 150 mg Documented by: Levothyroxine Sodium (Synthroid) 100 mcg PO DAILYBB [facility] Stop: 11/07/19 06:29 Last Admin: 10/20/19 08:08 Dose: 100 mcg Documented by: Lineville Carbonate (Lineville Carbonate) 300 mg PO QAM [facility] Stop: 11/18/19 08:59 Last Admin: 10/20/19 08:11 Dose: 300 mg Documented by: Line[place] Carbonate (Line[place] Carbonate) 450 mg PO HS [facility] Stop: 11/17/19 21:59 Last Admin: 10/19/19 21:55 Dose: 450 mg Documented by: Magnesium Hydroxide (Milk Of Magnesia) 30 ml PO DAILY PRN PRN Reason: Constipation Stop: 11/06/19 23:21 Magnesium Oxide (Mag-Ox) 800 mg PO DAILY [facility] Stop: 11/07/19 08:59 Last Admin: 10/20/19 08:12 Dose: 800 mg Documented by: Multivitamins (Multivitamin Tab) 1 tab PO DAILY [facility] Stop: 11/07/19 08:59 Last Admin: 10/20/19 08:12 Dose: 1 tab Documented by: Olanzapine (Zyprexa) 10 mg IM Q4 PRN PRN Reason: Agitation Stop: 11/07/19 09:06 Last Admin: 10/08/19 09:31 Dose: 10 mg Documented by: Olanzapine (Zyprexa Zydis Od) 5 mg PO Q4 PRN PRN Reason: Anxiety/Agitation Stop: 11/07/19 12:59 Last Admin: 10/18/19 19:40 Dose: 5 mg Documented by: Olanzapine (Zyprexa Zydis Od) 20 mg PO HS [facility] Stop: 11/08/19 21:59 Last Admin: 10/19/19 21:56 Dose: 20 mg Documented by: Ondansetron HCl (Zofran Odt) 4 mg PO Q6H PRN PRN Reason: Nausea Stop: 11/12/19 09:00 Last Admin: 10/19/19 16:26 Dose: 4 mg Documented by: Sodium Chloride (Glades Nasal) 1 - 2 sprays NA PRN PRN PRN Reason: Nasal Dryness/Congestion Stop: 11/06/19 23:21 Temazepam (Restoril) 30 mg PO HSZ KEY Stop: 11/13/19 21:59 Last Admin: 10/19/19 21:55 Dose: 30 mg Documented by: Tramadol HCl (Ultram) 50 mg PO Q6 PRN PRN Reason: Pain Stop: 11/16/19 11:59 Mental Health & Subst Abuse Tx Psychiatrist Name of Psychiatrist: [facility] Psychiatrist's Date of Appointment with Psychiatrist: 10/29/19 Time of Appointment with Psychiatrist: 11:50 a.m. Psychiatric Appointment Comment: [address], [address], [place] [address] Therapist Name of Therapist: [facility] Date of Therapist Appointment: 11/06/19 Time of Therapist Appointment: 8:30 a.m. Therapy Appointment Comment: [address], [address], [place] [address] Welding Equipment Sales Representative Name of Welding Equipment Sales Representative: [facility] [place] Phone Number for Welding Equipment Sales Representative: [phone] Date of Appointment with Welding Equipment Sales Representative: 10/25/19 Time of Appointment with Welding Equipment Sales Representative: 1:30 p.m. Case Management Appointment Comment: Will meet you at your home Post Discharge Appointments Primary Care Physician Name Of Family Doctor: [facility] - Dr. Zhong Primary Care Time of Appointment with PCP: As needed Provider Appointment Comment: [address] [place] [address] , [address], [place] [address] Contact Information Discharge Discharge Address: [address] [place] [address], [address], [place] [address]
[2019-10-20] MEDS ORDERED: IBUPROFEN 600 MG TAB PO PRN (10:53)
[2019-10-20] MEDS: POLYETHYLENE (MIRALAX) 17 GM PACK PO SCH (11:19)
[2019-10-20 12:04] LABS: Appearance Urine Clear (Clear); Bilirubin Urine Negative (Negative); Blood Urine Negative (Negative); Color Urine Yellow; Glucose Urine UA Negative (Negative); Ketones Urine Negative (Negative); Leukocyte Esterase Urine Negative (Negative); Nitrite Urine Negative (Negative); Protein Urine Negative (Negative); Specific Gravity Urine 1.008 (1.000-1.030); Urobilinogen Urine Negative (Negative); pH Urine >= 9.0 (4.5-7.5)
[2019-10-20] MEDS: OLANZAPINE ZYDIS 10 MG ORALLY DIS. TAB PO SCH (21:32)
[2019-10-20] MEDS: TEMAZEPAM 15 MG CAPSULE PO SCH (21:32)
[2019-10-21] MEDS: LEVOTHYROXINE SODIUM 100 MCG TABLET PO SCH (08:16)
[2019-10-21] MEDS: POLYETHYLENE (MIRALAX) 17 GM PACK PO SCH (08:17)
[2019-10-21] MEDS: MULTIVITAMIN TAB PO SCH (08:17)
[2019-10-21] MEDS: lamoTRIgine 100 MG TAB PO SCH ×2 (08:17→22:09)
[2019-10-21] MEDS: MAGNESIUM OXIDE 400 MG TAB PO SCH (08:17)
[2019-10-21] MEDS: clonazePAM 0.5 MG TAB PO SCH ×2 (08:17→22:09)
[2019-10-21] MEDS: LITHIUM CARBONATE 300 MG TAB PO SCH ×2 (08:17→22:10)
[2019-10-21] MEDS: estradioL 1 MG TAB PO SCH (08:17)
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
[2019-10-21] MEDS ORDERED: ACETAMINOPHEN 325 MG TAB PO PRN (10:27)
[2019-10-21] MEDS: TRAMADOL HCL 50 MG TABLET PO PRN (11:05)
[2019-10-21] MEDS: OLANZAPINE ZYDIS 10 MG ORALLY DIS. TAB PO SCH (22:10)
[2019-10-21] MEDS: TEMAZEPAM 15 MG CAPSULE PO SCH (22:10)
[2019-10-22] MEDS: TRAMADOL HCL 50 MG TABLET PO PRN (05:49)
[2019-10-22] MEDS: estradioL 1 MG TAB PO SCH (07:42)
[2019-10-22] MEDS: LEVOTHYROXINE SODIUM 100 MCG TABLET PO SCH (07:42)
[2019-10-22] MEDS: clonazePAM 0.5 MG TAB PO SCH (07:42)
[2019-10-22] MEDS: LITHIUM CARBONATE 300 MG TAB PO SCH ×2 (07:43→21:31)
[2019-10-22] MEDS: MAGNESIUM OXIDE 400 MG TAB PO SCH (07:43)
[2019-10-22] MEDS: lamoTRIgine 100 MG TAB PO SCH ×2 (07:43→21:30)
[2019-10-22] MEDS: MULTIVITAMIN TAB PO SCH (07:44)
[2019-10-22] MEDS: POLYETHYLENE (MIRALAX) 17 GM PACK PO SCH (07:44)
--- NOTE | 2019-10-22 09:42 | Psychiatric Progress Note ---
Date of Service October 22, 2019 Impression / Recommendations Impression 39-year-old female with history of bipolar disorder type I who is admitted involuntarily for psychotic wendi. She was initially admitted voluntarily, but after striking two patients and demonstrating significant disorganization and paranoia, she had to be placed on a 302 involuntary commitment, and is on a 303 as of 10/11/2019. Multiple medication adjustments have been made and she is demonstrating improvement in stability of mood, appropriate interactions with staff and peers, and gradual improvement in sleep. She continues to be somewhat disorganized and grandiose (still talking about starting school for various degrees, writing multiple books) - though there have been improvements in these areas overall. Ongoing medication adjustments to better target these symptoms. MNPR is maintained for disorganization and poor sleep, though patient has been taken off elopment precautions and has been stepped down from the [facility]. Inpatient psychiatric treatment remains the least restrictive and most appropria te setting for the patient at this time. (1) Bipolar 1 disorder, mixed, severe: 10/07--The patient was admitted to the [facility] ([facility] unit) on q15 min checks (behavioral with suicide precautions) for safety. The patient will participate in group, recreational, and milieu therapies and will be offered additional individual and family sessions as clinically appropriate. Patient is unable to engage in meaningful discussion around treatment planning at this time. Will offer Zyprexa zydis 10 mg po qhs this hs and continue roshni cious prns. Effexor XR will be discontinued as manic. Continue Lamictal. Consider lithium. Need additional records re: previous mood stabilizer trials. Confirm amount MJ use as could be contributing factor. 10/08--titrate Zyprexa 20 mg hs, continue prns. Patient is back and forth on signing CHRISTOPHER for [employer] for prior med trials. Relates side effects to Depakote, Trileptal, "who knows what else", probably did have a lithium trial. 10/09--BID dosing for Zyprexa to decrease reliance on prns. Cannot engage in discussion around another atypical or lithium loading at this time. Review of [employer] med rec lists (Seroquel, Depakote, Rexulti, Clayton, Latuda, Cymbalta, Trileptal, Lexapro, Abilify, Buspar, Lamictal, Neurontin and Lorazepam trials. Klonopin will need tapered when more stable. Will offer Ambien tonight if still unable to sleep. filed for 303 commitment hearing as patient lacks insight into her condition and needs to remain hospitalized for safety. If she would begin to refuse medications by mouth, it is my medical opinion that she would require antipsychotic medication over objection as without treatment for her wendi she would likely suffer or significant disability within the next 30 days. Also reviewed with sw that will need to confirm if she was indeed accepted to [facility] as I do not feel she is in any state to be signing legal documents re: student loans. 10/10 -The patient appears to be responding favorably to Zyprexa 20 mg at bedtime, and says that she feels that she is tolerating it well. She focuses heavily on reporting side effects from various other medications -Although the patient is able to acknowledge that she had been doing fairly well and had been stable until she changed psychiatrists for 5 months ago, she also indicated that during the same. She has experienced a number of psychosocial stressors and upheavals at work that may have contributed to her psychiatric decompensation. -Explained to the patient that Zyprexa 20 mg at bedtime is a good mood stabilizer, but I would also recommend that we increase her dose of lamotrigine from 100 mg twice a day to a dose of 150 mg twice a day, with an intermediary st ep of 100 mg in the morning and 150 mg at bedtime for 2 weeks before increasing further, as tolerated. The patient indicated understanding and agreement, but notes that, in the past, she feels that she has been somewhat overly sedated by lamotrigine, but agrees to allow us to monitor and titrate as indicated. -The patient was retained at her 302 commitment hearing this morning. The patient was fully cooperative with the hearing and expressed her willingness to adhere with recommended treatment during the hospitalization. The patient's brother was present and provided the patient with support by holding her hand during the hearing. 10/11 - stopped Ambien, -added temazepam 5mg hs plus 15mg hs prn repeat dose if not able to sleep -added lithium carbonate 150mg po bid -grounding processes being reviewed with pt, -male ticket writer seeing with female staff being present to help alleviate her anxiety that occurs 10/12 - limiting stimulation, encouraging sleep, frequent redirection and maintaining plan unchanged for now given further containment of symptoms appearing to occur 10/13 - Continue attempts to limit stimulation in order to encourage sleep, will increase temazepam to 15mg due to poor sleep since admission with limited response to 7.5mg dose - Continue current medication regimen presently - consider need for ongoing adjustments as patient continues to demonstrate disorganized thought process - Ongoing redirection as required, limitation of group programming based on patient's ability to tolerate activity - Maintain MNPR at this time due to poor sleep, disorganization, and remaining inappropriate for a roommate 10/14 -Maintain private room due to poor sleep and ongoing manic/psychotic symptoms. -Coordinated care: Contacted outpatient psychiatrist, Dr. Schneider's office, and left a message for him with his staff advising of patient's hospitalization and presenting symptoms, concerns about medical marijuana. They confirmed that Dr. Schneider was not the certifying physician. Patient reports Dr. Taylor Recinos [facility] medicine was the certifying physician, so we will get a release and send records regarding concerns that cannabis use is worsening her psychosis. Her family also reports concerns about this, and social work will inform them of options including contacting her physician and the dispensary directly given the risk of harm. -Continue current medications, and consider further lithium titration. -We will try to avoid controlled substances given her cannabis use, is currently on 2 benzodiazepines for sleep and antimanic properties. Hopefully will be able to taper down prior to discharge. -Schedule family meeting with mother and brother who are her primary supports. Patient indicates willingness for referrals for therapy and case management. 10/15 - Maintain private room at this time - Will titrate lithium to 300mg BID, begin by offering an initial 150mg dose this morning (300mg total AM dose) - Will order lithium trough for 10/20 in the morning - Will need to schedule a family meeting with brother to assess progress since admission and review discharge/safety planning - Pt was agreeable with referrals for outpatient therapy and a mental health case packer 10/16 - Maintain private room. Behavior is more appropriate; however, patient continues to get poor sleep which is not helpful for her treatment - Continue current medication regimen - lithium titrated yesterday - Continuing to coordinate with family regarding scheduling a family meeting to discuss safety and discharge planning - Pt remains agreeable with additional outpatient psychiatric services on discharge 10/17 -Maintained medically necessary private room at this time. Sleep disturbance remains a central issue for this patient. -Patient indicates that she is tolerating lithium carbonate 300 mg twice a day. A lithium level is scheduled to be achieved on 10/21/2019. Today, her dose of lithium carbonate is being increased to 300 mg in the morning and 450 mg in the evening, pending her upcoming lithium level early next week. -An ongoing issue identified by the patient, and by the patient's brother, is the report that the patient and her mother tend to bicker, and this bickering is felt by the patient's brother to trigger the patient in several ways, including defiance regarding medication adherence. -We will continue to work with the patient around the issue of her need to move past insisting that her mother's behavior changes and towards focusing more on those behaviors which might result in the patient's mother feeling more comfortable "backing off." -The patient's family indicates that the patient may harbor an erotomanic delusion regarding a former male friend. When asked about this relationship today the patient acknowledges that the relationship is not romantic, but that she hopes to maintain the individual as a friend. 10/18--wendi is improving, begin Klonopin taper to 1.5 mg total daily dose today then 1 mg total daily dose starting 10/19. 10/19--lithium level as scheduled in the am, will decrease frequency of ibuprofen and Ultram prns and ask rounders on 10/20 to reassess use after lithium level obtained. Repeat UA, likely just polyuria from lithium 10/20 - Clayton level obtained this morning - slightly subtherapeutic at 0.5. Pt historically has benefited from low-dose, and as she is not on lithium as monotherapy we will continue her current dosage at this time - Continue remainder of her scheduled psychiatric medications for bipolar management - Fasting glucose and lipid panel reviewed again with patient - values WNL - We did discuss reducing dosage of temazepam, as sleep has been improving - will reduce dose to 15mg qHS with potential for further taper and possible discontinuation before discharge home - Continue to coordinate discharge plans with family 10/21 - Titrating lithium to 300mg qAM and 600mg qHS to further target symptoms of bipolar disorder - Continue olanzapine and lamotrigine at current doses - Restoril reduced to 15mg last evening, ongoing discussion regarding sleep hygiene - patient provided with patient handouts on the topic - Will further reduce clonazepam to 0.5mg qHS - plan to discontinue by time of discharge - Will have an additional discussion with family via phone to review safety and discharge planning - as patient has not yet been able to address changes to her work/life situation once she leaves (i.e. no work due to COVID-19 outbreak, possibility of unemployment, limits to daily routine, and other changes). - Will hopefully be able to better gauge patient's proximity to baseline and further discuss discharge timeline during second family meeting (2) Fibromyalgia: 10/16 - Continues to report pain related to fibromyalgia diagnosis - We were able to confirm a prn tramadol prescription provided as recently as 09/27/2019 - Will have tramadol 50mg q6h available as needed for fibromyalgia pain 10/17 -The patient reports today that she is in less pain than yesterday.' 10/20 - Pt requesting medication for headache, specifically acetaminophen (previously listed as allergy) - Pt is able to clarify that her allergy is only with acetaminophen with codeine and that she has taken and tolerated acetaminophen alone on an outpatient basis - Acetaminophen ordered at this time and removed from allergy list after confirming with patient Inventory Assets Strengths: Pleasant. Good social skills. Motivated to change and improved. Motivated to train become employed. Needs: Improved individual coping strategies. Assistance and redirecting the patient's focus on to her own behaviors and needs for improvement. Risk Factors Assessment Male: No : Yes Do You Have Access To A Gun?: No Health Problems: Yes Mental Health Diagnoses: Yes Substance Use Disorders: No Previous Attempt: No Family History of Suicide: No Previous Psychiatric Hospitalization: Yes Hopelessness: No Smoker: No Protective Factors Assessment : No Responsible for Young Children: No Employed: Yes Stable Relationships: Yes Supportive Family: Yes Good Rapport with Provider: Yes Absence of Any Risk Factors Above: No Interval History Identifying Information THERESA RYAN is a 39-year-old F who currently lives in [place] with mother, has a history of wendi, and was admitted on 10/07/19 23:23 on a 201 voluntary commitment for disorganized behavior at work. Pt became acutely agitated after arrival on unit and commitment status was converted to a 302. 303 was granted on 10/10. Chief Complaint "Um, I'm ok. There is something with my medications thought." Review of Systems Notes Constitutional: reports ongoing fatigue, difficulty falling asleep Cardiovascular: denied Respiratory: denied Gastrointestinal: denied Neurological: denied Psychiatric: denies symptoms other than stated above Total of at least 10 systems reviewed, pertinent positives as above and in HPI. Sleep Information Total Hours of Sleep: 3 Sleep Comments: pt appeared to have difficulties going back to bed. pt awoke to go to the bathroom, had a snack of an apple, and later made a mixture of drinks. pt verbally encouraged to go back to sleep. pt on q-15 minute checks Meal Information Percent Meal Consumed - Breakfast: 100 Percent Meal Consumed - Lunch: 100 Percent Meal Consumed - Dinner: 100 Nutrition Comment: per meal record Subjective Subjective Patient was seen & assessed and interval progress reviewed with nursing and social work. Staff report the patient slept poorly again last evening. Pt continues to be expansive and grandiose. Pt was seen today to assess progress since admission. Pt states that she had another episode of incontinence last evening, initially believing this to be related to her medications. With further discussion, patient admits that she feels as though she is not able to wake up quickly enough to make it to the toilet. We discussed that temazepam had been reduced last evening, and also that patient was only able to get 3 hours of sleep on this lower dose. Sleep hygiene was discussed with the patient - which included implementing a relaxing evening routine to promote sleep. In this discussion, patient was encouraged to limit fluid intake after 2100 and ensure that she was using the bathroom before getting into bed. Pt was encouraged that as these behaviors are implemented, medications are further adjusted, and sleep improves, this issue will likely also resolve. Pt continues to state that episodes of incontinence predate her current admission. 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 She was informed of an additional family meeting being scheduled to discuss patient's home/work-life routine - as she will likely have limited structure to her day during the government-mandated shutdown for the COVID-19 outbreak. As patient will not be returning to work, plan was to discuss how this will affect her treatment and attempt to coordinate this with her outpatient supports as well. Pt denies SI, stating "I've come too far for that." She is agreeable with titration of lithium and further reduction of clonazepam. Pt denies other needs or concerns today. Physical Exam Psychiatric Orientation: alert, oriented x 3 and cooperative (and pleasant) Apperance: appropriately dressed, appropriately groomed and appeared stated age Pt appears fatigued, occasionally closing eyes as if drifting off to sleep - awakens quickly to verbal stimuli and is able to maintain conversation. Eye Contact: + fair eye contact (occasionally closing eyes during discussion) Motor Behavior: steady gait and station and no abnormal motor movements Speech: normal rate/rhythm/volume of speech Affect: + blunted affect (appearing more alert, but still subdued ) Mood: no depressed mood ("I'm ok") and no anxious mood Thought Process: goal directed thought process and clear/coherent thought process Somewhat disorganized - requiring that medication changes be repeated multiple times Thought Content: no hopelessness Remains grandiose at times - discussion projects and ideas after discharge, but is more understanding of need to reduce the amount of projects on her plate Suicidal Thoughts: denies suicidal thoughts and denies suicidal intent Homicidal Thoughts: denies homicidal thoughts Hallucinations: no auditory hallucinations and no visual hallucinations Cognition: attention grossly intact and language grossly intact Insight: + limited insight (slightly improved) Judgement: + limited judgement Vital Signs (Past 24 Hours) Last Vital Signs Temp 36.4 C L 10/22/19 06:47 Pulse 112 H 10/22/19 06:48 Resp 18 10/22/19 06:47 BP 117/77 10/22/19 06:48 Pulse Ox 98 10/07/19 23:21 Results & Data ([facility]) Current Inpatient Medications Current Inpatient Medications: Current Inpatient Medications Acetaminophen (Tylenol) 650 mg PO Q4H PRN PRN Reason: Headache or Minor Fever Stop: 11/20/19 10:26 Al Hydrox/Mg Hydrox/Simethicone (Maalox) 30 ml PO Q4H PRN PRN Reason: GI Upset Stop: 11/06/19 23:21 Last Admin: 10/14/19 03:27 Dose: 30 ml Documented by: Benztropine Mesylate (Cogentin) 1 mg PO BID PRN PRN Reason: Muscle Spasm Stop: 11/08/19 12:02 Bismuth Subsalicylate (Kaopectate) 15 ml PO PRN PRN PRN Reason: Loose Stool Stop: 11/06/19 23:21 Clonazepam (Klonopin) 0.5 mg PO Q8 PRN PRN Reason: Anxiety/Agitation Stop: 11/07/19 09:15 Clonazepam (Klonopin) 0.5 mg PO BID KEY Stop: 11/18/19 20:59 Last Admin: 10/22/19 07:42 Dose: 0.5 mg Documented by: Estradiol (Estrace) 1 mg PO DAILY KEY Stop: 11/07/19 08:59 Last Admin: 10/22/19 07:42 Dose: 1 mg Documented by: Hydroxyzine HCl (Vistaril) 50 mg PO HSZ PRN PRN Reason: Insomnia Stop: 11/06/19 23:21 Last Admin: 10/18/19 00:38 Dose: 50 mg Documented by: Hydroxyzine HCl (Vistaril) 25 mg PO Q4H PRN PRN Reason: Anxiety Stop: 11/06/19 23:21 Last Admin: 10/21/19 20:08 Dose: 25 mg Documented by: Ibuprofen (Motrin) 600 mg PO BID PRN PRN Reason: Pain Stop: 11/07/19 13:45 Last Admin: 10/21/19 06:56 Dose: 600 mg Documented by: Lamotrigine (Lamictal) [facility] [place] Stop: 11/11/19 08:59 Last Admin: 10/22/19 07:43 Dose: 100 mg Documented by: Lamotrigine (Lamictal) 150 mg PO [facility] Stop: 11/10/19 21:59 Last Admin: 10/21/19 22:09 Dose: 150 mg Documented by: Levothyroxine Sodium (Synthroid) [facility] Stop: 11/07/19 06:29 Last Admin: 10/22/19 07:42 Dose: 100 mcg Documented by: Clayton Carbonate (Clayton Carbonate) 300 [facility] [place] Stop: 11/18/19 08:59 Last Admin: 10/22/19 07:43 Dose: 300 mg Documented by: Clayton Carbonate (Clayton Carbonate) 450 mg PO HS KEY Stop: 11/17/19 21:59 Last Admin: 10/21/19 22:10 Dose: 450 mg Documented by: Magnesium Hydroxide (Milk Of Magnesia) 30 ml PO DAILY PRN PRN Reason: Constipation Stop: 11/06/19 23:21 Magnesium Oxide (Mag-Ox) 800 mg PO DAILY KEY Stop: 11/07/19 08:59 Last Admin: 10/22/19 07:43 Dose: 800 mg Documented by: Multivitamins (Multivitamin Tab) 1 tab PO DAILY KEY Stop: 11/07/19 08:59 Last Admin: 10/22/19 07:44 Dose: 1 tab Documented by: Olanzapine (Zyprexa) 10 mg IM Q4 PRN PRN Reason: Agitation Stop: 11/07/19 09:06 Last Admin: 10/08/19 09:31 Dose: 10 mg Documented by: Olanzapine (Zyprexa Zydis Od) 5 mg PO Q4 PRN PRN Reason: Anxiety/Agitation Stop: 11/07/19 12:59 Last Admin: 10/18/19 19:40 Dose: 5 mg Documented by: Olanzapine (Zyprexa Zydis Od) 20 mg PO HS KEY Stop: 11/08/19 21:59 Last Admin: 10/21/19 22:10 Dose: 20 mg Documented by: Ondansetron HCl (Zofran Odt) 4 mg PO Q6H PRN PRN Reason: Nausea Stop: 11/12/19 09:00 Last Admin: 10/19/19 16:26 Dose: 4 mg Documented by: Polyethylene Glycol (Miralax Powder Packet) 17 gm PO DAILY KEY Stop: 11/19/19 10:29 Last Admin: 10/22/19 07:44 Dose: 17 gm Documented by: Sodium Chloride ([place] Nasal) 1 - 2 sprays NA PRN PRN PRN Reason: Nasal Dryness/Congestion Stop: 11/06/19 23:21 Temazepam (Restoril) 15 mg PO HSZ KEY Stop: 11/20/19 21:59 Last Admin: 10/21/19 22:10 Dose: 15 mg Documented by: Tramadol HCl (Ultram) 50 mg PO Q6 PRN PRN Reason: Pain Stop: 11/16/19 11:59 Last Admin: 10/22/19 05:49 Dose: 50 mg Documented by: Mental Health & Subst Abuse Tx Psychiatrist Name of Psychiatrist: [facility]rist's Date of Appointment with Psychiatrist: 10/29/19 Time of Appointment with Psychiatrist: 11:50 a.m. Psychiatric Appointment Comment: [address], [place] [address] Therapist Name of Therapist: [facility] Date of Therapist Appointment: 11/06/19 Time of Therapist Appointment: 8:30 a.m. Therapy Appointment Comment: [address], [address], [place] [address] Community Relations Representative Name of Community Relations Representative: [facility] [place] Phone Number for Community Relations Representative: [phone] Date of Appointment with Community Relations Representative: 10/25/19 Time of Appointment with Community Relations Representative: 1:30 p.m. Case Management Appointment Comment: Will meet you at your home Post Discharge Appointments Primary Care Physician Name Of Family Doctor: [facility] - Dr. Zhong Primary Care Date of Appointment with PCP: 11/01/19 Time of Appointment with PCP: 12:15 Provider Appointment Comment: Phone visit - Dr. Zhong will contact you by cell phone Other #1: Name of Aftercare Appointment: [facility] - Dr. Cullen Phone Number of Aftercare Appointment: [phone] Aftercare Appointment Comment: [address] [place] [address] Contact Information Discharge Discharge Address: [address] [place] [address], [address], [place] [address]
[2019-10-22] MEDS ORDERED: DOCUSATE SODIUM 100 MG CAP PO PRN (12:24)
[2019-10-22] MEDS: OLANZAPINE ZYDIS 10 MG ORALLY DIS. TAB PO SCH (21:32)
[2019-10-22] MEDS: TEMAZEPAM 15 MG CAPSULE PO SCH (21:32)
[2019-10-22] MEDS ORDERED: clonazePAM 0.5 MG TAB PO SCH (22:00)
[2019-10-23] MEDS: LEVOTHYROXINE SODIUM 100 MCG TABLET PO SCH (08:11)
[2019-10-23] MEDS: estradioL 1 MG TAB PO SCH (08:36)
[2019-10-23] MEDS: LITHIUM CARBONATE 300 MG TAB PO SCH ×2 (08:37→20:48)
[2019-10-23] MEDS: lamoTRIgine 100 MG TAB PO SCH ×2 (08:37→20:48)
[2019-10-23] MEDS: MAGNESIUM OXIDE 400 MG TAB PO SCH (08:38)
[2019-10-23] MEDS: POLYETHYLENE (MIRALAX) 17 GM PACK PO SCH (08:38)
[2019-10-23] MEDS: MULTIVITAMIN TAB PO SCH (08:38)
--- NOTE | 2019-10-23 08:38 | Psychiatric Progress Note ---
Date of Service October 23, 2019 Impression / Recommendations Impression 39-year-old female with history of bipolar disorder type I who is admitted involuntarily for psychotic wendi. She was initially admitted voluntarily, but after striking two patients and demonstrating significant disorganization and paranoia, she had to be placed on a 302 involuntary commitment, and is on a 303 as of 10/11/2019. Multiple medication adjustments have been made and she is demonstrating improvement in stability of mood, appropriate interactions with staff and peers, and gradual improvement in sleep. She continues to be somewhat disorganized and grandiose (still talking about starting school for various degrees, writing multiple books) - though there have been improvements in these areas overall. Ongoing medication adjustments to better target these symptoms. MNPR is maintained for disorganization and poor sleep, though patient has been taken off elopment precautions and has been stepped down from the [facility]. Inpatient psychiatric treatment remains the least restrictive and most appropria te setting for the patient at this time. (1) Bipolar 1 disorder, mixed, severe: 10/07--The patient was admitted to the [facility] (union hospital unit) on q15 min checks (behavioral with suicide precautions) for safety. The patient will participate in group, recreational, and milieu therapies and will be offered additional individual and family sessions as clinically appropriate. Patient is unable to engage in meaningful discussion around treatment planning at this time. Will offer Zyprexa zydis 10 mg po qhs this hs and continue roshni cious prns. Effexor XR will be discontinued as manic. Continue Lamictal. Consider lithium. Need additional records re: previous mood stabilizer trials. Confirm amount MJ use as could be contributing factor. 10/08--titrate Zyprexa 20 mg hs, continue prns. Patient is back and forth on signing [facility]RISTOPHER for [facility] for prior med trials. Relates side effects to Depakote, Trileptal, "who knows what else", probably did have a lithium trial. 10/09--BID dosing for Zyprexa to decrease reliance on prns. Cannot engage in discussion around another atypical or lithium loading at this time. Review of [facility] med rec lists (Seroquel, Depakote, Rexulti, Oak [place], Latuda, Cymbalta, Trileptal, Lexapro, Abilify, Buspar, Lamictal, Neurontin and Lorazepam trials. Klonopin will need tapered when more stable. Will offer Ambien tonight if still unable to sleep. filed for 303 commitment hearing as patient lacks insight into her condition and needs to remain hospitalized for safety. If she would begin to refuse medications by mouth, it is my medical opinion that she would require antipsychotic medication over objection as without treatment for her wendi she would likely suffer or significant disability within the next 30 days. Also reviewed with sw that will need to confirm if she was indeed accepted to [employer] as I do not feel she is in any state to be signing legal documents re: student loans. 10/10 -The patient appears to be responding favorably to Zyprexa 20 mg at bedtime, and says that she feels that she is tolerating it well. She focuses heavily on reporting side effects from various other medications -Although the patient is able to acknowledge that she had been doing fairly well and had been stable until she changed psychiatrists for 5 months ago, she also indicated that during the same. She has experienced a number of psychosocial stressors and upheavals at work that may have contributed to her psychiatric decompensation. -Explained to the patient that Zyprexa 20 mg at bedtime is a good mood stabilizer, but I would also recommend that we increase her dose of lamotrigine from 100 mg twice a day to a dose of 150 mg twice a day, with an intermediary st ep of 100 mg in the morning and 150 mg at bedtime for 2 weeks before increasing further, as tolerated. The patient indicated understanding and agreement, but notes that, in the past, she feels that she has been somewhat overly sedated by lamotrigine, but agrees to allow us to monitor and titrate as indicated. -The patient was retained at her 302 commitment hearing this morning. The patient was fully cooperative with the hearing and expressed her willingness to adhere with recommended treatment during the hospitalization. The patient's brother was present and provided the patient with support by holding her hand during the hearing. 10/11 - stopped Ambien, -added temazepam 5mg hs plus 15mg hs prn repeat dose if not able to sleep -added lithium carbonate 150mg po bid -grounding processes being reviewed with pt, -male securities underwriter seeing with female staff being present to help alleviate her anxiety that occurs 10/12 - limiting stimulation, encouraging sleep, frequent redirection and maintaining plan unchanged for now given further containment of symptoms appearing to occur 10/13 - Continue attempts to limit stimulation in order to encourage sleep, will increase temazepam to 15mg due to poor sleep since admission with limited response to 7.5mg dose - Continue current medication regimen presently - consider need for ongoing adjustments as patient continues to demonstrate disorganized thought process - Ongoing redirection as required, limitation of group programming based on patient's ability to tolerate activity - Maintain MNPR at this time due to poor sleep, disorganization, and remaining inappropriate for a roommate 10/14 -Maintain private room due to poor sleep and ongoing manic/psychotic symptoms. -Coordinated care: Contacted outpatient psychiatrist, Dr. Schneider's office, and left a message for him with his staff advising of patient's hospitalization and presenting symptoms, concerns about medical marijuana. They confirmed that Dr. Schneider was not the certifying physician. Patient reports Dr. Taylor Recinos [facility] medicine was the certifying physician, so we will get a release and send records regarding concerns that cannabis use is worsening her psychosis. Her family also reports concerns about this, and social work will inform them of options including contacting her physician and the dispensary directly given the risk of harm. -Continue current medications, and consider further lithium titration. -We will try to avoid controlled substances given her cannabis use, is currently on 2 benzodiazepines for sleep and antimanic properties. Hopefully will be able to taper down prior to discharge. -Schedule family meeting with mother and brother who are her primary supports. Patient indicates willingness for referrals for therapy and case management. 10/15 - Maintain private room at this time - Will titrate lithium to 300mg BID, begin by offering an initial 150mg dose this morning (300mg total AM dose) - Will order lithium trough for 10/20 in the morning - Will need to schedule a family meeting with brother to assess progress since admission and review discharge/safety planning - Pt was agreeable with referrals for outpatient therapy and a mental health director of casework 10/16 - Maintain private room. Behavior is more appropriate; however, patient continues to get poor sleep which is not helpful for her treatment - Continue current medication regimen - lithium titrated yesterday - Continuing to coordinate with family regarding scheduling a family meeting to discuss safety and discharge planning - Pt remains agreeable with additional outpatient psychiatric services on discharge 10/17 -Maintained medically necessary private room at this time. Sleep disturbance remains a central issue for this patient. -Patient indicates that she is tolerating lithium carbonate 300 mg twice a day. A lithium level is scheduled to be achieved on 10/21/2019. Today, her dose of lithium carbonate is being increased to 300 mg in the morning and 450 mg in the evening, pending her upcoming lithium level early next week. -An ongoing issue identified by the patient, and by the patient's brother, is the report that the patient and her mother tend to bicker, and this bickering is felt by the patient's brother to trigger the patient in several ways, including defiance regarding medication adherence. -We will continue to work with the patient around the issue of her need to move past insisting that her mother's behavior changes and towards focusing more on those behaviors which might result in the patient's mother feeling more comfortable "backing off." -The patient's family indicates that the patient may harbor an erotomanic delusion regarding a former male friend. When asked about this relationship today the patient acknowledges that the relationship is not romantic, but that she hopes to maintain the individual as a friend. 10/18--wendi is improving, begin Klonopin taper to 1.5 mg total daily dose today then 1 mg total daily dose starting 10/19. 10/19--lithium level as scheduled in the am, will decrease frequency of ibuprofen and Ultram prns and ask rounders on 10/20 to reassess use after lithium level obtained. Repeat UA, likely just polyuria from lithium 10/20 - Oak Brook level obtained this morning - slightly subtherapeutic at 0.5. Pt historically has benefited from low-dose, and as she is not on lithium as monotherapy we will continue her current dosage at this time - Continue remainder of her scheduled psychiatric medications for bipolar management - Fasting glucose and lipid panel reviewed again with patient - values WNL - We did discuss reducing dosage of temazepam, as sleep has been improving - will reduce dose to 15mg qHS with potential for further taper and possible discontinuation before discharge home - Continue to coordinate discharge plans with family 10/21 - Titrating lithium to 300mg qAM and 600mg qHS to further target symptoms of bipolar disorder - Continue olanzapine and lamotrigine at current doses - Restoril reduced to 15mg last evening, ongoing discussion regarding sleep hygiene - patient provided with patient handouts on the topic - Will further reduce clonazepam to 0.5mg qHS - plan to discontinue by time of discharge - Will have an additional discussion with family via phone to review safety and discharge planning - as patient has not yet been able to address changes to her work/life situation once she leaves (i.e. no work due to COVID-19 outbreak, possibility of unemployment, limits to daily routine, and other changes). - Will hopefully be able to better gauge patient's proximity to baseline and further discuss discharge timeline during second family meeting (2) Fibromyalgia: 10/16 - Continues to report pain related to fibromyalgia diagnosis - We were able to confirm a prn tramadol prescription provided as recently as 09/27/2019 - Will have tramadol 50mg q6h available as needed for fibromyalgia pain 10/17 -The patient reports today that she is in less pain than yesterday.' 10/20 - Pt requesting medication for headache, specifically acetaminophen (previously listed as allergy) - Pt is able to clarify that her allergy is only with acetaminophen with codeine and that she has taken and tolerated acetaminophen alone on an outpatient basis - Acetaminophen ordered at this time and removed from allergy list after confirming with patient Inventory Assets Strengths: Pleasant. Good social skills. Motivated to change and improved. Motivated to train become employed. Needs: Improved individual coping strategies. Assistance and redirecting the patient's focus on to her own behaviors and needs for improvement. Risk Factors Assessment Male: No : Yes Do You Have Access To A Gun?: No Health Problems: Yes Mental Health Diagnoses: Yes Substance Use Disorders: No Previous Attempt: No Family History of Suicide: No Previous Psychiatric Hospitalization: Yes Hopelessness: No Smoker: No Protective Factors Assessment : No Responsible for Young Children: No Employed: Yes Stable Relationships: Yes Supportive Family: Yes Good Rapport with Provider: Yes Absence of Any Risk Factors Above: No Interval History Identifying Information THERESA RYAN is a 39-year-old F who currently lives in [place] with mother, has a history of wendi, and was admitted on 10/07/19 23:23 on a 201 voluntary commitment for disorganized behavior at work. Pt became acutely agitated after arrival on unit and commitment status was converted to a 302. 303 was granted on 10/10. Chief Complaint "[]". Review of Systems Sleep Information Total Hours of Sleep: 3.75 Sleep Comments: incontinent of urine once at 0000, awake at 0000,0230,0530 Meal Information Percent Meal Consumed - Breakfast: 100 Percent Meal Consumed - Lunch: 100 Percent Meal Consumed - Dinner: 75 Nutrition Comment: per meal record Subjective Subjective Patient was seen & assessed and interval progress reviewed with [treatment team] [nursing and social work] Physical Exam Vital Signs (Past 24 Hours) Last Vital Signs Temp 36.4 C L 10/23/19 06:30 Pulse 109 H 10/23/19 06:30 Resp 18 10/23/19 06:30 BP 115/75 10/23/19 06:30 Pulse Ox 98 10/07/19 23:21 Results & Data ([facility]) Laboratory Results Laboratory Results - last 24 hr 10/23/19 02:38 POC Glucose 105 H Current Inpatient Medications Current Inpatient Medications: Current Inpatient Medications Acetaminophen (Tylenol) 650 mg PO Q4H PRN PRN Reason: Headache or Minor Fever Stop: 11/20/19 10:26 Al Hydrox/Mg Hydrox/Simethicone (Maalox) 30 ml PO Q4H PRN PRN Reason: GI Upset Stop: 11/06/19 23:21 Last Admin: 10/14/19 03:27 Dose: 30 ml Documented by: Benztropine Mesylate (Cogentin) 1 mg PO BID PRN PRN Reason: Muscle Spasm Stop: 11/08/19 12:02 Bismuth Subsalicylate (Kaopectate) 15 ml PO PRN PRN PRN Reason: Loose Stool Stop: 11/06/19 23:21 Clonazepam (Klonopin) 0.5 mg PO Q8 PRN PRN Reason: Anxiety/Agitation Stop: 11/07/19 09:15 Clonazepam (Klonopin) 0.5 mg PO HS KEY Stop: 11/21/19 21:59 Last Admin: 10/22/19 21:29 Dose: 0.5 mg Documented by: Docusate Sodium (Colace) 100 mg PO BID PRN PRN Reason: constipation Stop: 11/21/19 20:59 Estradiol (Estrace) 1 mg PO DAILY KEY Stop: 11/07/19 08:59 Last Admin: 10/22/19 07:42 Dose: 1 mg Documented by: Hydroxyzine HCl (Vistaril) 50 mg PO HSZ PRN PRN Reason: Insomnia Stop: 11/06/19 23:21 Last Admin: 10/18/19 00:38 Dose: 50 mg Documented by: Hydroxyzine HCl (Vistaril) 25 mg PO Q4H PRN PRN Reason: Anxiety Stop: 11/06/19 23:21 Last Admin: 10/21/19 20:08 Dose: 25 mg Documented by: Ibuprofen (Motrin) 600 mg PO BID PRN PRN Reason: Pain Stop: 11/07/19 13:45 Last Admin: 10/21/19 06:56 Dose: 600 mg Documented by: [facility] ([facility]ictal) [facility] Stop: 11/11/19 08:59 Last Admin: 10/22/19 07:43 Dose: 100 mg Documented by: Lamotrigine (Lamictal) 150 mg PO [facility] Stop: 11/10/19 21:59 Last Admin: 10/22/19 21:30 Dose: 150 mg Documented by: Levothyroxine S[facility] (Synthroid) [facility] Stop: 11/07/19 06:29 Last Admin: 10/23/19 08:11 Dose: 100 mcg Documented by: [place] Carbonate ([place] Carbonate) 300 [facility] Stop: 11/18/19 08:59 Last Admin: 10/22/19 07:43 Dose: 300 mg Documented by: [place] Carbonate ([place] Carbonate) 600 mg PO [facility] Stop: 11/21/19 21:59 Last Admin: 10/22/19 21:31 Dose: 600 mg Documented by: Magnesium Hydroxide (Milk Of Magnesia) 30 ml PO DAILY PRN PRN Reason: Constipation Stop: 11/06/19 23:21 Magnesium Oxide (Mag-Ox) [address] [facility] Stop: 11/07/19 08:59 Last Admin: 10/22/19 07:43 Dose: 800 mg Documented by: Multivitamins (Multivitamin Tab) [address] [facility] Stop: 11/07/19 08:59 Last Admin: 10/22/19 07:44 Dose: 1 tab Documented by: Olanzapine (Zyprexa) 10 mg IM Q4 PRN PRN Reason: Agitation Stop: 11/07/19 09:06 Last Admin: 10/08/19 09:31 Dose: 10 mg Documented by: Olanzapine (Zyprexa Zydis Od) 5 mg PO Q4 PRN PRN Reason: Anxiety/Agitation Stop: 11/07/19 12:59 Last Admin: 10/18/19 19:40 Dose: 5 mg Documented by: Olanzapine (Zyprexa Zydis Od) 20 mg PO HS KEY Stop: 11/08/19 21:59 Last Admin: 10/22/19 21:32 Dose: 20 mg Documented by: Ondansetron HCl (Zofran Odt) 4 mg PO Q6H PRN PRN Reason: Nausea Stop: 11/12/19 09:00 Last Admin: 10/19/19 16:26 Dose: 4 mg Documented by: Polyethylene Glycol (Miralax Powder Packet) 17 gm PO DAILY [facility] Stop: 11/19/19 10:29 Last Admin: 10/22/19 07:44 Dose: 17 gm Documented by: Sodium Chloride (Chaves Nasal) 1 - 2 sprays NA PRN PRN PRN Reason: Nasal Dryness/Congestion Stop: 11/06/19 23:21 Temazepam (Restoril) 15 mg PO HSZ KEY Stop: 11/20/19 21:59 Last Admin: 10/22/19 21:32 Dose: 15 mg Documented by: Tramadol HCl (Ultram) 50 mg PO Q6 PRN PRN Reason: Pain Stop: 11/16/19 11:59 Last Admin: 10/22/19 05:49 Dose: 50 mg Documented by: Mental Health & Subst Abuse Tx Psychiatrist Name of Psychiatrist: [facility]'s Date of Appointment with Psychiatrist: 10/29/19 Time of Appointment with Psychiatrist: 11:50 a.m. Psychiatric Appointment Comment: [address] [place] [address] [facility] [address], [address], [place] [address] Therapist Name of Therapist: [facility]'s Date of Therapist Appointment: 11/06/19 Time of Therapist Appointment: 8:30 a.m. Therapy Appointment Comment: [address] [facility], [address], [place] [address] Cupola Mechanic Name of Cupola Mechanic: [facility] Phone Number for Cupola Mechanic: [phone] Date of Appointment with Cupola Mechanic: 10/25/19 Time of Appointment with Cupola Mechanic: 1:30 p.m. Case Management Appointment Comment: Will meet you at your home Post Discharge Appointments Primary Care Physician Name Of Family Doctor: [facility] - Dr. Zhong Primary [facility] Date of Appointment with PCP: 11/01/19 Time of Appointment with PCP: 12:15 Provider Appointment Comment: Phone visit - Dr. Zhong will contact you by cell phone Other #1: Name of Aftercare Appointment: [facility] - Dr. Cullen Phone Number of Aftercare Appointment: [phone] Aftercare Appointment Comment: [address] [facility] [place] [address] Contact Information Discharge Discharge Address: [address], [address], [place] [address]
[2019-10-23] MEDS: ONDANSETRON 4 MG OD TAB PO PRN (08:43)
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
[2019-10-23] MEDS ORDERED: TEMAZEPAM 15 MG CAPSULE PO PRN (10:55)
[2019-10-23] MEDS ORDERED: clonazePAM 0.5 MG TAB PO PRN (10:55)
[2019-10-23] MEDS: OLANZAPINE ZYDIS 5 MG ORALLY DIS. TAB PO PRN ×2 (15:00→19:18)
[2019-10-23] MEDS ORDERED: OLANZapine 20 MG TABLET PO SCH (22:00)
[2019-10-24] MEDS: estradioL 1 MG TAB PO SCH (07:49)
[2019-10-24] MEDS: MAGNESIUM OXIDE 400 MG TAB PO SCH (07:49)
[2019-10-24] MEDS: LITHIUM CARBONATE 300 MG TAB PO SCH (07:49)
[2019-10-24] MEDS: LEVOTHYROXINE SODIUM 100 MCG TABLET PO SCH (07:49)
[2019-10-24] MEDS: lamoTRIgine 100 MG TAB PO SCH (07:49)
[2019-10-24] MEDS: MULTIVITAMIN TAB PO SCH (07:49)
[2019-10-24] MEDS: POLYETHYLENE (MIRALAX) 17 GM PACK PO SCH (07:50)
--- NOTE | 2019-10-24 08:20 | Discharge Summary ---
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 10/18--wendi is improving, begin Klonopin taper to 1.5 mg total daily dose today then 1 mg total daily dose starting 10/19. 10/19--lithium level as scheduled in the am, will decrease frequency of ibuprofen and Ultram prns and ask rounders on 10/20 to reassess use after lithium level obtained. Repeat UA, likely just polyuria from lithium 10/20 - Ririe level obtained this morning - slightly subtherapeutic at 0.5. Pt historically has benefited from low-dose, and as she is not on lithium as monotherapy we will continue her current dosage at this time - Continue remainder of her scheduled psychiatric medications for bipolar management - Fasting glucose and lipid panel reviewed again with patient - values WNL - We did discuss reducing dosage of temazepam, as sleep has been improving - will reduce dose to 15mg qHS with potential for further taper and possible discontinuation before discharge home - Continue to coordinate discharge plans with family 10/21 - Titrating lithium to 300mg qAM and 600mg qHS to further target symptoms of bipolar disorder - Continue olanzapine and lamotrigine at current doses - Restoril reduced to 15mg last evening, ongoing discussion regarding sleep hygiene - patient provided with patient handouts on the topic - Will further reduce clonazepam to 0.5mg qHS - plan to discontinue by time of discharge - Will have an additional discussion with family via phone to review safety and discharge planning - as patient has not yet been able to address changes to her work/life situation once she leaves (i.e. no work due to COVID-19 outbreak, possibility of unemployment, limits to daily routine, and other changes). - Will hopefully be able to better gauge patient's proximity to baseline and further discuss discharge timeline during second family meeting 10/22 -Continue lithium, lamotrigine, and olanzapine (changed from SolTab to tablet in preparation for discharge). Change clonazepam and temazepam to as needed, as using short-term for sleep and antimanic properties, but may be contributing to urinary incontinence overnight. Discontinue ibuprofen, as she is now on lithium. -Patient and family preparing for probable discharge tomorrow. 10/23 -Reviewed side effects and risks of lithium, reminded to avoid NSAIDs, provided with UpToDate patient handout on the medication. -30 day prescriptions issued for new medications. -Advised not to drive until fully stabilized and has lithium level checked (due next week, can be ordered at f/u appt with Dr. Schneider 10/28). -Avoid THC/cannabis. Care coordinated with Dr. Vazquez during hospitalization. (2) Fibromyalgia: 10/16 - Continues to report pain related to fibromyalgia diagnosis - We were able to confirm a prn tramadol prescription provided as recently as 09/27/2019 - Will have tramadol 50mg q6h available as needed for fibromyalgia pain 10/17 -The patient reports today that she is in less pain than yesterday. 10/20 - Pt requesting medication for headache, specifically acetaminophen (previously listed as allergy) - Pt is able to clarify that her allergy is only with acetaminophen with cod eine and that she has taken and tolerated acetaminophen alone on an outpatient basis - Acetaminophen ordered at this time and removed from allergy list after confirming with patient Mental Health & Subst Abuse Tx Psychiatrist Name of Psychiatrist: [facility] Date of Appointment with Psychiatrist: 10/29/19 Time of Appointment with Psychiatrist: 11:50 a.m. Psychiatric Appointment Comment: [address], [address], [place] [address] Therapist Name of Therapist: [facility] Date of Therapist Appointment: 11/06/19 Time of Therapist Appointment: 8:30 a.m. Therapy Appointment Comment: [address], [address], [place] [address] Wood Coater Name of Wood Coater: [facility] [place] Phone Number for Wood Coater: [phone] Date of Appointment with Wood Coater: 10/25/19 Time of Appointment with Wood Coater: 1:30 p.m. Case Management Appointment Comment: Will meet you at your home Post Discharge Appointments Primary Care Physician Name Of Family Doctor: [facility] - Dr. Zhong Primary [facility] Date of Appointment with PCP: 11/01/19 Time of Appointment with PCP: 12:15 Provider Appointment Comment: Phone visit - Dr. Zhong will contact you by cell phone Smoking Cessation Counseling Tobacco Cessation Medication Prescribed at Discharge: Not Applicable/Non-Smoker Contact Information Discharge Discharge Address: [address] [place] [address], [facility] [address], [place] [id number] Discharge Plan Discharge Items Patient Disposition: Home - Self-Care Reason For Visit: BIPOLAR DISORDER Discharge Diagnosis: bipolar disorder type I, most recent episode manic with psychosis Activity: Per Instructions section Non-emergency contact: Primary Care Provider, Priest, Psychiatrist, Therapist and Intelligence Operations Specialist Call non-emergency contact if: you have any medication questions and your symptoms worsen Follow-up/Referrals: Holden Zhong Jr, [Primary Care Provider] - Diet: Gluten Free Addtl Attending Provider Instructions: SPECIAL CARE INSTRUCTIONS: 1. Follow through with your scheduled aftercare appointments. If unable to keep an appointment, please call to reschedule. 2. Take your medication only as prescribed. Medication should not be changed or stopped without the approval of your doctor. In the event of worsening symptoms or concerns about side effects, contact your doctor immediately. You were started on lithium and will need to get a trough level after about 5 days - Dr. Schneider can order this for you at your appointment 10/29/2019. You were provided with an UpToDate patient handout on this medication. Do not drive until you have stabilized fully and have had your lithium level checked. 3. Utilize new healthy coping skills, anger management skills, and stress management skills learned during your hospitalization. Journal feelings and process them with a support person. Identify stressors or situations that may result in relapse, deterioration or inappropriate behaviors and develop a plan to deal with those issues. 4. If your coping skills are ineffective and you are in crisis, contact your outpatient providers for direction. If unable to reach your providers, please call the CAN HELP LINE AT or go to the closest Emergency Room. 5. Avoid alcohol and un-prescribed drugs. Avoid cannabis as it can worsen psychosis and trigger manic episodes. 6. You have been provided with the Mental Health Advance Directives Pamphlet for your review. 7. For urinary incontinence, avoid fluids for an hour before bedtime and overnight, and follow up with your OB-BUNCH BREAKER MACHINE OPERATOR and/or PCP. AFTERCARE APPOINTMENTS: * Please call your insurance company prior to your scheduled appointment to confirm your aftercare providers are covered. Take your insurance information to your appointments. WHO TO CALL AND WHEN: Medical Emergencies: For questions or emergencies related to your hospital stay, please contact the Inpatient Behavioral Health Unit at [phone]. A claim clinician is on-call 20/02 for the Behavioral Health Unit for emergencies At any time you feel your situation is an emergency, you may also call 911 immediately. Your Doctors Instructions noted above were prepared by provider Donna Butt MD. Pending Studies at Discharge: No Stand-Alone Forms: [facility], Smoking Cessation Medications and DC Order Prescriptions: New lamotrigine 150 mg tablet 150 mg PO HS Qty: 30 RF: 0 lithium carbonate 300 mg Tablet 300 mg PO QAM Qty: 30 RF: 0 lithium carbonate 600 mg capsule 600 mg PO HS Qty: 30 RF: 0 olanzapine [Zyprexa] 20 mg Tablet 20 mg PO HS Qty: 30 RF: 0 Continued levothyroxine 100 mcg Tablet 100 mcg PO DAILY RF: 0 clonazepam [Klonopin] 0.5 mg tablet 0.5 mg PO TID PRN (Reason: Anxiety) RF: 0 multivitamin Tablet 1 tab PO DAILY RF: 0 coenzyme Q10 [Co Q-10] 50 mg Capsule 50 mg PO DAILY RF: 0 estradiol 1 mg Tablet 1 mg PO DAILY RF: 0 magnesium 250 mg Tablet 500 mg PO DAILY RF: 0 Estroven 155 mg Capsule 155 mg PO DAILY RF: 0 Changed lamotrigine [Lamictal] 100 mg tablet 100 mg PO QAM Qty: 30 RF: 1 Discontinued Medical Marijuana See Rx Instructions .ROUTE .COMPLEX PRN (Reason: Anxiety) RF: 0 venlafaxine [Effexor XR] 75 mg Capsule,Extended Release 24hr 75 mg PO QAM RF: 0 Discharge Orders: Discharge Order (Routine); Ordered 10/24/19 Ordered By: Donna Butt Admission Data Admit Date/Time: 10/07/19 23:23 Attending Provider: Donna Butt Admit Provider: Aurelio Chavis I. Primary Care Provider: Holden Zhong Jr Other Interventions: PSY Interdisciplinary Discharge Planning Last Done: 10/21/19 08:59 Coding Level of Care Code 53675 D/C day mgmt > 30 min Diagnoses Bipolar 1 disorder, mixed, severe F31.63 Fibromyalgia M79.7
== END 2019-10-24 10:10 | disposition home or self-care (01) | DRG 885 ==
LOC: ED 16:41 → 3S 23:23 → SUATTDRO 23:23 → 3S 23:47